=== PATIENT | female | born 1950 | race African-American/Black ===

== ENCOUNTER → 2016-08-10 | Outpatient (CLI) | payer MEDICARE, BC ==
--- NOTE | 2016-08-10 15:45 | BD ---
EXAMINATION TYPE: MG DEXA axial skeleton. DATE OF EXAM: 08/10/2016 10:11 AM COMPARISON: 01.28.2002 CLINICAL HISTORY: E55.9 VITAMIN D DEFICENCY Height: 60 Weight: 149 FRAX RISK QUESTIONS: Alcohol (3 or more units per day): NO Family History (Parent hip fracture): UNKNOWN Glucocorticoids (More than 3mos): YES (Ex: prednisone, prednisolone, methylprednisolone, dexamethasone, and hydrocortisone). History of Fracture in Adulthood: NO Secondary Osteoporosis: NO 1. Type 1 Diabetes: NO 2. Hyperthyroidism: NO 3. Menopause before 45: YES 4. Malnutrition: NO 5. Chronic liver disease: NO Rheumatoid Arthritis: NO Current Tobacco Use: NO RISK FACTORS HISTORY OF: Family History of Osteoporosis: NONE KNOWN Smoke tobacco: NO Drink Alcohol: NO Active: YES Diet low in dairy products/other sources of calcium: NO Postmenopausal woman: 42 YRS OLD Lost more than 2 inches in height since high school: POSSIBLY Adrenal Insufficiency: NO MEDICATIONS: Prednisone or other steroids: STEROID DROPS IN HER EYES How Long: FEW YRS Osteoporosis Medications: IN THE PAST BUT STOPPED 3 YRS AGO Which medication: MYACALCIN How Long: FOR MANY YRS ...BUT STOPPED 3 YRS AGO Additional Medications: BP MEDS, ORAL DIABETIC MEDICATION, CALCIUM WITH VIT D Additional History: CATARACT SURG., DIABETES EXAM MEASUREMENTS: Bone mineral densitometry was performed using the [employer] System. Bone mineral density as measured about the Lumbar spine is: ----- L1-L4(G/cm2): 1.090 T Score Values are as follows: ----- L1: -2.8 ----- L2: -3.1 ----- L3: 0.8 ----- L4: 0.4 ----- L1-L4: -0.8 Bone mineral density has: Increased 6.8% since study of: 01.28.2002 Bone mineral density about the R hip (g/cm2): 1.00 Bone mineral density about the L hip (g/cm2): 0.981 T Score values are as follows: -----R Neck: -0.5 -----L Neck: -0.3 -----R Total: -0.1 -----L Total: -0.2 Bone mineral density has: Decreased -14.8% since study of: 01.28.2002 FRAX %'S: 3.2% CHANCE OF A MAJOR OSTEOPOROTIC FX AND A 0.2% CHANCE FOR A HIP FX.....PROBABILITY OF FX IN 10 YRS TIME IMPRESSION: Osteoporosis (T Score less than -2.5) as noted by T Score values at the There is increased fracture risk and therapy is usually indicated based on age. Re-Screen 1-2 years Bone density has diminished 14.8% within the bilateral hips from comparison: 2001. Bone density wit hin the lumbar spine has improved 6.8% from 2001 NOTE: T-SCORE=SD OF THE YOUNG ADULT MEAN.
--- NOTE | 2016-08-13 09:30 | MM ---
Reason for exam: screening (asymptomatic). Last mammogram was performed 1 year ago. History: Patient is postmenopausal. Family history of premenopausal breast cancer in sister at age 35. Physical Findings: A clinical breast exam by your physician is recommended on an annual basis and results should be correlated with mammographic findings. MG 3D Screening Mammo W/Cad Bilateral CC and MLO view(s) were taken. Prior study comparison: August 10, 2015, bilateral MG 3d screening mammo w/cad. July 19, 2014, bilateral MG screening mammo w CAD. The breast tissue is almost entirely fat. No significant changes when compared with prior studies. ASSESSMENT: Benign, BI-RAD 2 RECOMMENDATION: Routine screening mammogram of both breasts in 1 year.
== END | disposition home or self-care (01) ==
LOC: RADMAMWWP 08:36
PROVIDERS: ATTEND Internal Medicine
DX: Z12.31 Encounter for screening mammogram for malignant neoplasm of breast (principal); M81.0 Age-related osteoporosis without current pathological fracture
CPT/HCPCS: 77080; 77063; G0202

== ENCOUNTER → 2016-10-11 | Outpatient (CLI) | payer MEDICARE, BC ==
[~2016-10-11] MED LIST: DENOSUMAB 60 MG/ML 1 ML SYRINGE SQ ONE
[2016-10-11 15:10] VITALS: BP 137/75; PULSE 61; RESP 16; TEMP 98
== END ==
LOC: PROCWHC3 14:46
PROVIDERS: ATTEND Internal Medicine
DX: M81.0 Age-related osteoporosis without current pathological fracture (principal)
CPT/HCPCS: 96372; J0897

== ENCOUNTER → 2017-07-08 | Outpatient (CLI) | payer MEDICARE, BC ==
[2017-07-08 13:43] VITALS: BP 170/80; PULSE 59; RESP 16; TEMP 97.8
== END | disposition home or self-care (01) ==
LOC: PROCWHC3 13:25
PROVIDERS: ATTEND Internal Medicine
DX: M81.0 Age-related osteoporosis without current pathological fracture (principal)
CPT/HCPCS: 96372; J0897

== ENCOUNTER → 2018-01-09 | Outpatient (CLI) | payer MEDICARE, BC ==
--- NOTE | 2018-01-10 11:48 | MM ---
Reason for exam: screening (asymptomatic). Last mammogram was performed 1 year and 5 months ago. History: Patient is postmenopausal. Family history of premenopausal breast cancer in sister at age 35. Physical Findings: A clinical breast exam by your physician is recommended on an annual basis and results should be correlated with mammographic findings. MG 3D Screening Mammo W/Cad Bilateral CC and MLO view(s) were taken. Prior study comparison: August 10, 2016, bilateral MG 3d screening mammo w/cad. August 10, 2015, bilateral MG 3d screening mammo w/cad. The breast tissue is heterogeneously dense. This may lower the sensitivity of mammography. There is no discrete abnormality. No significant changes when compared with prior studies. ASSESSMENT: Negative, BI-RAD 1 RECOMMENDATION: Routine screening mammogram of both breasts in 1 year.
== END ==
LOC: RADMAMWWP 14:45
PROVIDERS: ATTEND Internal Medicine
DX: Z12.31 Encounter for screening mammogram for malignant neoplasm of breast (principal)
CPT/HCPCS: 77063; 77067

== ENCOUNTER → 2018-02-03 | Outpatient (CLI) | payer MEDICARE, BC ==
[2018-02-03 14:45] VITALS: BP 135/81; PULSE 69; RESP 16; TEMP 98.4
== END | disposition home or self-care (01) ==
LOC: PROCWHC3 14:17
PROVIDERS: ATTEND Internal Medicine
DX: M81.0 Age-related osteoporosis without current pathological fracture (principal)
CPT/HCPCS: 20611; 96372; J0897; J7328

== ENCOUNTER 2018-07-16 06:44 | Day surgery (SDC) | payer MEDICARE, BC ==
[2018-07-10 16:16] VITALS: BMI 27.8
[~2018-07-16 06:44] MED LIST changes: -DENOSUMAB 60 MG/ML 1 ML SYRINGE SQ ONE; +LACTATED RINGERS 1,000 ML IV SCH; +LIDOCAINE 1% 20 ML VIAL (10MG/ML) FOR IV START INTRADERMA PRN; +MOXIFLOXACIN HCL 0.5% DROPS 3 ML BTL OP NR; +ONDANSETRON 4 MG/2 ML VIAL IVP ONE; +TETRACAINE 0.5% OPHTH (PF) DROPS 4 ML BTL OP NR; +TIMOLOL 0.5% OPHTH DROPS 5 ML BTL OP NR; +TOBRA-DEXAMET 0.3-0.1% OPHTH DROPS 2.5 ML BTL OPHTHALMIC NR
[2018-07-16 07:24] VITALS: RESP 18; TEMP 97.8
[2018-07-16] MEDS: PILOCARPINE 2% OPHTH DROPS 15 ML BTL OP NR ×3 (07:25→07:45)
[2018-07-16 07:49] LABS: Glucose,Whole Blood 170 mg/dL (75-99)
[2018-07-16] MEDS ORDERED: fentaNYL (PF) 50 MCG/ML 2 ML AMP ONE (08:02)
[2018-07-16] MEDS ORDERED: MIDAZOLAM 2 MG/2 ML VIAL ONE (08:02)
[2018-07-16] MEDS ORDERED: EPINEPHrine (PF) 0.3 ML in BALANCED SALT IRRIG SOLN COMB2 500 ML IRRIGATION ONE (08:22)
[2018-07-16] MEDS ORDERED: BALANCED SALT IRRIG SOLN COMB2 15 ML IRRIG.SOLN IRRIGATION ONE (08:25)
[2018-07-16] MEDS ORDERED: LIDOCAINE (PF) 10 MG/ML 5ML AMP MISCELLANE ONE (08:25)
[2018-07-16] MEDS ORDERED: TRYPAN BLUE 0.06% SYRINGE 0.5 ML SYRINGE INTRAOCULA ONE (08:27)
[2018-07-16] MEDS ORDERED: CHONDROITIN-SOD HYALURONATE 1 EACH SYRINGE (0.75 ML) INTRAOCULA ONE (08:28)
--- NOTE | 2018-07-16 08:30 | P.OP ---
Date of Procedure: 07/16/18 Preoperative Diagnosis: POAG moderate stage Postoperative Diagnosis: same Procedure(s) Performed: goniotomy right eye Implants: none Anesthesia: MAC Surgeon: Daniel Sanches Estimated Blood Loss (ml): 3 Pathology: none sent Condition: stable Disposition: same day Indications for Procedure: uncontrolled glaucoma with current medications Operative Findings: No complications
[2018-07-16 08:55] VITALS: BP 134/77; PULSE 62
--- NOTE | 2018-07-16 18:59 | OP ---
OPERATIVE REPORT DATE OF SURGERY: July 16, 2018. PROCEDURE PERFORMED: Goniotomy of the right eye. PREOPERATIVE DIAGNOSIS: Primary open angle glaucoma, moderate stage. SURGEON: Dr. Daniel Sanches. ANESTHESIA: Topical. ESTIMATED BLOOD LOSS: Less than 5 mL. SPECIMEN: Taken none. NARRATIVE: After obtaining the appropriate consent, the patient was brought to the operating room. There she was placed on cardiac monitoring, prepped and draped in the usual sterile manner. She was approached from her right temporal side and at the 9 o'clock position, a 2.5 mm keratome was used to create a self-sealing corneal flap incision in a Langerman's fashion. Small amount of 1% Xylocaine MPF 50/50 mix with balanced salt solution was injected into the anterior chamber. This was followed by staining of the anterior chamber with Trypan blue for approximately 1 minute. This was then irrigated away and Viscoat was used to stabilize the anterior chamber. The patient was then rotated approximately 45 degrees to her left and maintaining a gaze in that general direction. Viscoat was placed on the patient's cornea and a gonio prism was used to identify the trabecular meshwork. Using a [place] dual blade goniotomy knife, using a stacie and meet method, a nasal goniotomy of the trabecular meshwork on the right eye was performed without difficulty. A small amount of blood was released as expected. The patient was then rotated back to the normal supine position and using irrigation and aspiration the remainder of the viscoelastic was removed from the anterior chamber. The eye was brought to normal intraocular pressure through the temporal incision with balanced salt solution and the temporal wound was hydrated slightly. She then received 2 drops of 0.5% timolol followed by 2 drops of moxifloxacin, was then lightly patched and shielded in the usual manner. There were no complications from the procedure. She tolerated the procedure well and was returned to outpatient recovery in good condition. MMODL / IJN: [id number] /
== END 2018-07-16 09:19 | disposition home or self-care (01) ==
LOC: OR 06:44
PROVIDERS: ATTEND Ophthalmology
DX: H40.1132 Primary open-angle glaucoma, bilateral, moderate stage (principal); E11.9 Type 2 diabetes mellitus without complications; Z96.1 Presence of intraocular lens; Z88.2 Allergy status to sulfonamides; I10 Essential (primary) hypertension; Z79.84 Long term (current) use of oral hypoglycemic drugs; Z79.899 Other long term (current) drug therapy; Z80.9 Family history of malignant neoplasm, unspecified; Z83.3 Family history of diabetes mellitus; Z87.891 Personal history of nicotine dependence; J45.909 Unspecified asthma, uncomplicated; Z98.42 Cataract extraction status, left eye; Z98.41 Cataract extraction status, right eye
CPT/HCPCS: 65820; J2250; J0171; J2001; J3010

== ENCOUNTER → 2018-08-04 | Outpatient (CLI) | payer MEDICARE, BC ==
[~2018-08-04] MED LIST changes: +DENOSUMAB 60 MG/ML 1 ML SYRINGE SQ NR; -LACTATED RINGERS 1,000 ML IV SCH; -LIDOCAINE 1% 20 ML VIAL (10MG/ML) FOR IV START INTRADERMA PRN; -MOXIFLOXACIN HCL 0.5% DROPS 3 ML BTL OP NR; -ONDANSETRON 4 MG/2 ML VIAL IVP ONE; -TETRACAINE 0.5% OPHTH (PF) DROPS 4 ML BTL OP NR; -TIMOLOL 0.5% OPHTH DROPS 5 ML BTL OP NR; -TOBRA-DEXAMET 0.3-0.1% OPHTH DROPS 2.5 ML BTL OPHTHALMIC NR
[2018-08-04 14:27] VITALS: BP 138/76; PULSE 61; RESP 16; TEMP 98.3
== END ==
LOC: PROCWHC3 14:17
PROVIDERS: ATTEND Internal Medicine
DX: M81.0 Age-related osteoporosis without current pathological fracture (principal)
CPT/HCPCS: 96372

== ENCOUNTER 2018-08-20 07:42 | Day surgery (SDC) | payer MEDICARE, BC ==
[2018-08-15 08:49] VITALS: BMI 28.0
[~2018-08-20 07:42] MED LIST changes: -DENOSUMAB 60 MG/ML 1 ML SYRINGE SQ NR; +LACTATED RINGERS 1,000 ML IV SCH; +LIDOCAINE 1% 20 ML VIAL (10MG/ML) FOR IV START INTRADERMA PRN; +MOXIFLOXACIN HCL 0.5% DROPS 3 ML BTL OP NR; +PILOCARPINE 2% OPHTH DROPS 15 ML BTL OP NR; +TETRACAINE 0.5% OPHTH (PF) DROPS 4 ML BTL OP NR; +TIMOLOL 0.5% OPHTH DROPS 5 ML BTL OP NR
[2018-08-20 08:19] VITALS: RESP 16; TEMP 98.1
[2018-08-20 08:36] LABS: Glucose,Whole Blood 164 mg/dL (75-99)
[2018-08-20] MEDS ORDERED: MIDAZOLAM 2 MG/2 ML VIAL ONE (08:45)
[2018-08-20] MEDS ORDERED: fentaNYL (PF) 50 MCG/ML 2 ML AMP ONE (08:45)
[2018-08-20] MEDS ORDERED: BALANCED SALT IRRIG SOLN COMB2 15 ML IRRIG.SOLN IRRIGATION ONE (09:01)
[2018-08-20] MEDS ORDERED: BALANCED SALT IRRIG SOLN COMB2 500 ML IRRIGATION ONE (09:02)
[2018-08-20] MEDS ORDERED: CHONDROITIN-SOD HYALURONATE 1 EACH SYRINGE (0.75 ML) INTRAOCULA ONE (09:03)
[2018-08-20] MEDS ORDERED: TRYPAN BLUE 0.06% SYRINGE 0.5 ML SYRINGE INTRAOCULA ONE (09:06)
--- NOTE | 2018-08-20 09:13 | P.OP ---
Date of Procedure: 08/20/18 Preoperative Diagnosis: POAG moderate stage Postoperative Diagnosis: same Procedure(s) Performed: goniotomy left eye Implants: none Anesthesia: MAC Surgeon: Daniel Sanches Estimated Blood Loss (ml): 3 Pathology: none sent Condition: stable Disposition: same day Indications for Procedure: poorly controlled glaucoma Operative Findings: No complications
[2018-08-20 09:35] VITALS: BP 150/85; PULSE 55
--- NOTE | 2018-08-20 23:53 | OP ---
OPERATIVE REPORT DATE OF SURGERY: 08/20/2018. PROCEDURE: Goniotomy of the left eye. PREOPERATIVE DIAGNOSIS: Primary open-angle glaucoma, moderate stage. POSTOPERATIVE DIAGNOSIS: Primary open-angle glaucoma, moderate stage. SURGEON: Dr. Daniel Sanches ANESTHESIA: Topical. ESTIMATED BLOOD LOSS: Less than 5 mL. SPECIMEN TAKEN: None. NARRATIVE: After obtaining the appropriate consent, the patient was brought to the operating room. There she was placed under cardiac monitoring, prepped and draped in the usual sterile manner. She was approached from her left temporal side. At the 3 o'clock position a 2.5 mm keratome was used to create a self-sealing corneal flap incision. Through this opening 1% Xylocaine MPF 50/50 mix with balanced salt solution was injected into the anterior chamber. This was followed by instillation of trypan blue, which was left in place for approximately one minute. This was irrigated away and the anterior chamber was filled with Viscoat. A small amount was also placed on the patient's cornea. She was then asked to rotate her head to the right approximately 45 degrees and maintain the gaze in that general direction. A gonioprism was placed on the patient's cornea. Identification of the trabecular meshwork was readily identified with the trypan blue staining and a [employer] dual-blade goniotomy knife was brought into the anterior chamber; and using a cybd-[id number] method, the initial incision was approximately 8 o'clock and then was started from the superior position at approximately 10 or 11. The goniotomy knife was inserted within the trabecular meshwork and was used to remove the TM over the nasal angle of the patient's eye. A small amount of blood was liberated, as would be expected. The goniotomy knife was withdrawn from the anterior chamber and irrigation and aspiration of the viscoelastic as well as the small amount of blood which was liberated into the anterior chamber was removed once the patient was rotated back to the normal supine position. The eye was brought to normal intraocular pressure through the temporal incision, which was then hydrated with balanced salt solution. She then received 2 drops of moxifloxacin as well as 2 drops of 1% pilocarpine. She was lightly patched and shielded in the usual manner. There were no complications from the procedure. She tolerated the procedure well and was returned to Outpatient Recovery in good condition. MMODL / IJN: [id number] /
== END 2018-08-20 09:56 | disposition home or self-care (01) ==
LOC: OR 07:42
PROVIDERS: ATTEND Ophthalmology
DX: H40.1132 Primary open-angle glaucoma, bilateral, moderate stage (principal); E11.9 Type 2 diabetes mellitus without complications; I10 Essential (primary) hypertension; E78.5 Hyperlipidemia, unspecified; J45.909 Unspecified asthma, uncomplicated; Z79.84 Long term (current) use of oral hypoglycemic drugs; Z79.899 Other long term (current) drug therapy; Z98.41 Cataract extraction status, right eye; Z98.42 Cataract extraction status, left eye; Z88.8 Allergy status to other drugs, medicaments and biological substances; Z88.2 Allergy status to sulfonamides
CPT/HCPCS: 65820; J2250; J3010

== ENCOUNTER → 2018-10-14 | Outpatient (CLI) | payer MEDICARE, BC | END | disposition home or self-care (01) | LOC: LABPAT 14:15 | PROVIDERS: ATTEND Orthopaedic Surgery | DX: Z01.812 Encounter for preprocedural laboratory examination (principal) | CPT/HCPCS: 87070 ==

== ENCOUNTER 2018-10-28 15:00 | Day surgery (SDC) | payer MEDICARE, BC ==
--- NOTE | 2018-10-27 11:03 | HP ---
HISTORY AND PHYSICAL CHIEF COMPLAINT: Left knee pain. HISTORY OF PRESENT ILLNESS: The patient is a 68-year-old retired female who presents with progressive left knee pain, worsening over the past several years. She notes pain with weightbearing activities. She notes this severely limits her. She has tried medications in addition to previous injections with only partial temporary relief. PAST MEDICAL HISTORY: Significant for arthritis, type 2 diabetes, osteoporosis, hypertension, hyperlipidemia, glaucoma. PAST SURGICAL HISTORY: Significant for cataract removal and colonoscopy. FAMILY HISTORY: Significant for diabetes. SOCIAL HISTORY: Negative for current tobacco or alcohol use. REVIEW OF SYSTEMS: Sixteen-point review of systems otherwise reviewed and is noncontributory. CURRENT MEDICATIONS: 1. Atorvastatin. 2. Metformin. 3. Prolia. 4. Flonase. ALLERGIES: She notes allergies to SULFA. PHYSICAL EXAMINATION: On examination, the patient is approximately 5 feet 1 inch, 151 pounds of endomorphic habitus. HEENT exam is nonfocal. Neck is supple. She has painless passive motion of her left hip. Straight leg raise is negative. Active motion left knee minus 15 to 115 degrees of flexion. She has a mild effusion. She is tender about the medial joint line. Collaterals are stable, Kristi's negative, Anum's is equivocal. She has genu varum alignment. Her distal neurovascular exam appears intact in the left lower extremity. Weightbearing notch lateral Merchant views left knee obtained in the office show severe medial and patellofemoral compartment narrowing. IMPRESSION: 1. Left knee severe medial and patellofemoral compartment osteoarthrosis. 2. Gmy-[id number]-kkpslylwx diabetes. RECOMMENDATIONS: I talked to the patient at length regarding her condition and treatment options. At this point she is quite limited because of pain related to her osteoarthrosis despite conservative measures. After thorough discussion, she opts to proceed with surgery. We will plan to proceed with left total knee arthroplasty. We will institute DVT prophylaxis postoperatively. The patient underwent preoperative medical evaluation by Dr. Campos. We will institute DVT prophylaxis postoperatively. MMODL / LONGN: [id number] /
[~2018-10-28 15:00] MED LIST changes: +ACETAMINOPHEN TAB 500 MG TAB PO ONE; +DEXAMETHASONE SOD PHOSPHATE 10 MG/ML 1 ML VIAL IV ONE; +HYDROmorphone 0.5 MG/0.5 ML SYRINGE IVP PRN; -LACTATED RINGERS 1,000 ML IV SCH; +MELOXICAM 7.5 MG TAB PO ONE; +MIDAZOLAM 2 MG/2 ML VIAL IV PRN; -MOXIFLOXACIN HCL 0.5% DROPS 3 ML BTL OP NR; +ONDANSETRON 4 MG/2 ML VIAL IVP ONE; -PILOCARPINE 2% OPHTH DROPS 15 ML BTL OP NR; +SCOPOLAMINE 1.5MG/72HR PATCH TRANSDERM ONE; -TETRACAINE 0.5% OPHTH (PF) DROPS 4 ML BTL OP NR; -TIMOLOL 0.5% OPHTH DROPS 5 ML BTL OP NR; +TRANEXAMIC ACID 1,000 MG in SODIUM CHLORIDE 0.9% 100 ML IVPB ONE
[2018-10-28 15:39] LABS: Glucose,Whole Blood 126 mg/dL (75-99)
[2018-10-28] MEDS: LACTATED RINGERS 1,000 ML IV SCH (15:39)
[2018-10-28 15:40] VITALS: RESP 16
[2018-10-28] MEDS ORDERED: MIDAZOLAM (PF) 2 MG/2 ML VIAL IV ONE (15:55)
--- NOTE | 2018-10-28 16:30 | P.ANPRN ---
Procedure Note - Anesthesia - Nerve Block Performed Left Adductor Canal Infusion Time Out Performed: Yes Date of Procedure: 10/28/18 Procedure Start Time: 15:58 Procedure Stop Time: 16:04 Location of Patient Procedure: PreOp Indication: Acute Post-Operative Pain, Requested by physician Sedation Type: Sedate with meaningful contact maintained Preparation: Sterile Prep, Sterile Dressing Position: Supine Catheter: Indwelling Needle Types: Pajunk Needle Gauge: 18 Technique: Ultrasound Injectate: 0.5% Ropivacaine (see comment for volume) (20 ml + Decadron 10 mg)
[2018-10-28] MEDS ORDERED: diphenhydrAMINE 50 MG/ML 1 ML VIAL ONE (17:16)
[2018-10-28] MEDS ORDERED: PROPOFOL 10 MG/ML 20 ML VIAL IV ONE (17:16)
[2018-10-28] MEDS ORDERED: SODIUM CHLORIDE 0.9% 100 ML BAG ONE (17:16)
[2018-10-28] MEDS ORDERED: MIDAZOLAM 2 MG/2 ML VIAL ONE (17:16)
[2018-10-28] MEDS ORDERED: TRANEXAMIC ACID 1,000 MG/10 ML VIAL ONE (17:16)
[2018-10-28] MEDS ORDERED: fentaNYL (PF) 50 MCG/ML 2 ML AMP ONE (17:16)
[2018-10-28] MEDS: ROPIVACAINE 246.25 MG, EPINEPHrine 0.5 MG, KETOROLAC 30 MG, cloNIDine HCL/PF 80 MCG, WA... MISCELLANE ONE ×10 (18:11→18:40)
[2018-10-28] MEDS ORDERED: ceFAZolin 3,000 MG in SODIUM CHLORIDE 0.9% IRRIGATIO 3,000 ML IRRIGATION ONE (18:13)
[2018-10-28] MEDS ORDERED: NALOXONE 0.4 MG/ML 1 ML VIAL IV PRN (18:59)
[2018-10-28] MEDS ORDERED: HYDROmorphone 0.5 MG/0.5 ML SYRINGE IVP PRN (18:59)
[2018-10-28] MEDS ORDERED: traMADol 50 MG TAB PO PRN (18:59)
[2018-10-28] MEDS ORDERED: MAGNESIUM HYDROXIDE 2,400 MG/10 ML CUP PO PRN (18:59)
[2018-10-28] MEDS ORDERED: ONDANSETRON 4 MG/2 ML VIAL IVP PRN (18:59)
[2018-10-28] MEDS ORDERED: ACETAMINOPHEN TAB 325 MG TAB PO PRN (18:59)
[2018-10-28] MEDS ORDERED: HYDROcodone/APAP 5-325MG 1 EACH TAB PO PRN (18:59)
--- NOTE | 2018-10-28 19:25 | P.OP ---
Date of Procedure: 10/28/18 Preoperative Diagnosis: Left knee severe tricompartmental osteoarthrosis Postoperative Diagnosis: Same Procedure(s) Performed: Left total knee arthroplastycementedposterior stabilized Implants: Depuy Attune size 4 cemented femoral component, size 3 cemented tibial component, 10 mm articular surface, 29 mm cemented patellar component. This is a posterior stabilized implant. Anesthesia: regional, local, spinal Surgeon: Sid Hansen Trim Sawyer #1: Isaías Redd Estimated Blood Loss (ml): 50 Pathology: other (Bone fragments) Condition: stable Disposition: PACU Indications for Procedure: The patient's a 60-year-old female who presents to progressive left knee pain secondary to osteoarthrosis despite conservative measures. A discussion of the risks and benefits of operative intervention versus continued conservative measures was made with patient. She opted to proceed with surgery. Operative risks to include infection, neurovascular injury, development of blood clots, possible fracture, possible component loosening, possible instability need for subsequent procedures was discussed. Informed consent was obtained. Operative Findings: As below Description of Procedure: The patient was brought to the operating room, and after induction of spinal anesthesia the left lower extremity was prepped and draped in a normal fashion. The tourniquet was inflated to 270 mm marker. A longitudinal incision extending 3 finger breaths above the superior pole of patella extending to the medial aspect the tibial tubercle was then made. The skin and subcutaneous tissues were divided sharply. Electrocautery was used for hemostasis. A medial parapatellar arthrotomy was performed. The medial soft tissues to include the superficial and deep portions of the medial collateral ligament were elevated subperiosteally. The patella was everted. A portion of the retropatellar fat pad was excised sharply. The anterior cruciate ligament was sacrificed. Blunt retractors were placed. A starting hole was made in the distal femur 1 cm anterior to the posterior cruciate ligament origin. An intramedullary femoral guide was then inserted planning on 5 valgus distal cut with 9 mm distal resection. The cutting block was pinned in place. The distal cut was then made. The posterior referencing sizing guide was utilized. I felt size 4 was most appropriate. 3 of external rotation was built into the system and verified off the trans-epicondylar axis and the posterior condyles. The cutting block was pinned in place. The anterior, posterior, and chamfer cuts then made. Bone fragments were removed. The intercondylar guide was placed and the notch cut was made with a sagittal saw. The bone block was removed in one fragment. The trial component was then placed. There is good anterior to posterior and medial to lateral fit. The distal peg holes were drilled. The trial component was removed. Attention was then paid towards preparing the proximal femur. An extra medullary guide was utilized in line with the tibial shaft and second metatarsal distally. I planned on 2 mm resection from the medial compartment. The cutting block was pinned in place. The proximal tibial cut was then made. The bone was removed in one fragment. The remnants of the medial and lateral menisci were excised at the capsular junction with electrocautery. The tibia sized most appropriately at size 3. The trial femoral and tibial components were placed along with a 10 mm articular surface. I was able to obtain full flexion and extension with internal and external rotation. After several flexion and extension cycles, the tibial rotation was marked with electrocautery line with the medial one third of the tibial tubercle. Attention was then paid towards preparing the patella. A patella reamer was utilized taking stem to 14 mm of bone stock. A good flush cut was made. The patella sized most appropriately 29 mm. The peg holes were drilled. The trial components placed. I had good patellofemoral tracking with no hands technique. The trial components were then removed. The tibia was prepared in the appropriate rotation with appropriate drill and keel punch. The posterior osteophytes were removed with a curved osteotome. The flexion and extension gaps were checked and felt to be symmetric at 10 mm. A trial components were then removed. The posterior soft tissues were injected with ropivacaine. The bony surfaces were prepared with pulsatile lavage and dried. The tibial component was then cemented place was fully seated. Excess cement was removed. The femoral component cemented place and was fully seated. Excess cement was removed. The trial 10 mm articular surface was placed and the knee was put in full extension. The patella component was cemented place. After the cement had sufficiently hardened, the knee was again taken through a range of motion. Again I was able to obtain full flexion and extension with varus and valgus stress. The trial 10 mm articular surface was removed and the final one inserted. This was fully seated. Care was taken to avoid any soft tissue interposition. Pulsatile lavage was again utilized. The medial parapatellar arthrotomy was closed with #2 Ethibond suture. The tourniquet was deflated with approximately 60 minutes total tourniquet time. Final hemostasis was obtained with the cautery. There was minimal bleeding therefore a deep drain was not placed. The subcutaneous tissues were reapproximated with interrupted 2-0 Vicryl sutures. The skin was reapproximated with 3-0 subcuticular strata fix suture. Skin tape and adhesive was applied. A sterile dressing was applied. The patient was awoken from sedation and transferred to recovery room in good condition. Blood loss was estimated at 50 mL. No complications were incurred. Sponge and needle counts were correct at the end of the case. Gato RUIZ assisted during the major components of this case to include exposure, bone resection, implantation, and closure.
[2018-10-28] MEDS ORDERED: ROPIVACAINE 0.2%-NS ON-Q PUMP 1,090 MG, EMPTY PAIN BALL 1 EACH MISCELLANE PRN (19:39)
[2018-10-28 19:41] LABS: Glucose,Whole Blood 146 mg/dL (75-99)
--- NOTE | 2018-10-28 19:49 | XR ---
PROCEDURE: XR knee limited LT - 2V DATE AND TIME: 10/28/2018 7:40 PM CLINICAL INDICATION: PHH; Evaluation for Postop abnormality and alignment TECHNIQUE: Department protocol COMPARISON: None FINDINGS: TKR appears anatomic in its positioning and alignment. Postprocedure changes are noted. No unexpected findings. IMPRESSION: Postop left knee 2 views
[2018-10-28] MEDS ORDERED: LACTATED RINGERS 1,000 ML IV ONE (20:07)
[2018-10-28 20:47] VITALS: BMI 26.9
[2018-10-28] MEDS ORDERED: SENNOSIDES-DOCUSATE SODIUM 1 EACH TAB PO SCH (21:00)
[2018-10-28 21:07] LABS: Glucose,Whole Blood 195 mg/dL (75-99)
[2018-10-28] MEDS ORDERED: IPRATROPIUM-ALBUTEROL 3 ML NEB INHALATION PRN (21:12)
--- NOTE | 2018-10-28 22:19 | P.CONS ---
History of Present Illness - Reason for Consult Consult date: 10/28/18 Medical management of hyperglycemia postoperatively Requesting physician: Sid Hansen - Chief Complaint Hyperglycemia postoperatively - History of Present Illness 68-year-old female with history of diabetes mellitus and hypertension and hyperlipidemia and asthma Patient presented for hospital for scheduled left total knee arthroplasty due to severe advanced degenerative joint disease. Patient tolerated procedure well she is seen postoperative day 0 for management of hyperglycemia as requested per her surgeon. Patient tolerated procedure well with no observed immediate postoperative complications denies any chest pain or trouble breathing. She tolerated diet well. Passed urine. Pain is well tolerated and controlled. Patient is hyperglycemic, she takes metformin at home. Otherwise she denies any fevers or chills denies any nausea vomiting or abdominal pain. Denies any trouble breathing or chest pain Review of Systems Pertinent positives as noted in HPI. All other systems were reviewed and are negative Past Medical History Past Medical History: Asthma, Diabetes Mellitus, Eye Disorder, Hyperlipidemia, Hypertension Additional Past Medical History / Comment(s): osteoporosis, "high pressure in eyes",UTI's History of Any Multi-Drug Resistant Organisms: None Reported Past Surgical History: Orthopedic Surgery Additional Past Surgical History / Comment(s): makayla heel spurs, makayla cataracts, makayla knees arthroscopy Past Anesthesia/Blood Transfusion Reactions: No Reported Reaction Additional Past Anesthesia/Blood Transfusion Reaction / Comm: no hx blood transfusion Past Psychological History: No Psychological Hx Reported Smoking Status: Never smoker Past Alcohol Use History: None Reported Additional Past Alcohol Use History / Comment(s): smoked for a couple years in teens Past Drug Use History: None Reported - Past Family History Mother Family Medical History: No Reported History Additional Family Medical History / Comment(s): "mom's sister had colon CA" Medications and Allergies Home Medications Medication Instructions Recorded Confirmed Type Atorvastatin [Lipitor] 10 mg PO DAILY 10/11/16 10/28/18 History Bisoprolol-Hctz 2.5-6.25 mg [Ziac 1 each PO QAM 10/11/16 10/28/18 History 2.5-6.25] amLODIPine [Norvasc] 2.5 mg PO QAM 10/11/16 10/28/18 History metFORMIN HCL 1,000 mg PO BID 10/11/16 10/28/18 History Calcium Carbonate/Vitamin D3 1 tab PO BID 07/08/17 10/28/18 History [Calcium 600-Vit D3 400 Caplet] Calcitonin Nasal [Fortical 1 spray NASAL DAILY 07/10/18 10/28/18 History (Miacalcin)] Levalbuterol Tartrate [Xopenex Hfa 1 puff INHALATION DIRECTED PRN 07/10/18 10/28/18 History Inhaler] Denosumab [Prolia] 60 mg SQ Q180D 08/15/18 10/28/18 History Brinzolamide/Brimonidine Tart 1 drop RIGHT EYE TID 10/22/18 10/28/18 History [Simbrinza 1%-0.2% Eye Drops] Carboxymethylcellulose Sodium 30 ml BOTH EYES TID PRN 10/22/18 10/28/18 History [Refresh Tears] Difluprednate [Durezol] 1 drop RIGHT EYE BID 10/22/18 10/28/18 History Allergies Allergy/AdvReac Type Severity Reaction Status Date / Time Sulfa (Sulfonamide Allergy Rash/Hives Verified 10/28/18 15:16 Antibiotics) sulfamethoxazole Allergy Rash/Hives Verified 10/28/18 15:16 [From ] trimethoprim [From ] Allergy Rash/Hives Verified 10/28/18 15:16 Physical Exam Vitals: Vital Signs Temp Pulse Pulse Resp BP Pulse Ox 10/28/18 20:06 71 16 134/66 95 10/28/18 19:53 66 16 143/66 95 10/28/18 19:38 65 16 143/65 95 10/28/18 19:23 96.8 F L 78 16 128/76 97 10/28/18 16:09 64 16 127/63 100 10/28/18 15:38 97.4 F L 61 16 150/68 97 Intake and Output 10/28/18 10/28/18 10/28/18 06:59 14:59 22:59 Intake Total 1026 Output Total 50 Balance 976 Intake: IV 1026 Output: Estimated Blood Loss 50 Constitutional: No acute distress, conversant, pleasant Eyes: Anicteric sclerae, moist conjunctiva, no lid-lag Pupils equal round reactive to light ENMT: NC/AT Oropharynx clear, no erythema, exudates Neck: Supple, FROM, no masses, or JVD No carotid bruits No thyromegaly Lungs: Clear to auscultation Clear to percussion Normal respiratory effort, no accessory muscle use Cardiovascular: Heart regular in rate and rhythm, No murmurs, gallops, or rubs No peripheral edema Abdominal: Soft Nontender, no guarding, rebound or rigidity Abdomen moving with respiration Normoactive bowel sounds No hepatomegaly, No splenomegaly No palpable mass No abdominal wall hernia noted Skin: Normal temperature, tone, texture, turgor No induration No subcutaneous nodules No rash, lesions No ulcers Extremities: No digital cyanosis No clubbing Pedal pulses intact and symmetrical Radial pulses intact and symmetrical No calf tenderness Psychiatric: Alert and oriented to person, place and time Appropriate affect fair judgment Neuro Muscles Strength 5/5 in all 4 extremities , limited exam over left lower extremity due to postoperative status, pain pump at bedside Sensation to light touch grossly present throughout Cranial nerves II-XII grossly intact No focal sensory deficits Lymphatics: no palpable cervical or supraclavicular , or inguinal lymph nodes Results Labs: Abnormal Lab Results - Last 24 Hours (Table) 10/28/18 10/28/18 10/28/18 Range/Units 15:33 19:38 21:05 POC Glucose (mg/dL) 126 H 146 H 195 H (75-99) mg/dL Assessment and Plan Assessment: 68-year-old female with history of hypertension and diabetes presented for elective left total knee arthroplasty medicine consult at for postoperative medical management of hypertension and diabetes currently patient has no active complaints tolerated procedure well Plan: Hyperglycemia with history of diabetes mellitus Hold metformin Insulin sliding scale Consistent carbohydrate diet Hypertension currently controlled Resume home blood pressure meds Left total knee arthroplasty postoperative day 0 Management per orthopedics for pain and DVT prophylaxis History of asthma DuoNeb's when necessary Incentive spirometry Follow-up CBC and BMP in the morning Thank you for allowing us to participate in the care of this patient. Do not hesitate to contact us with questions. Someone can be reached from the [facility] hospitalist group at all hours of the day at [phone].
[2018-10-28] MEDS: BRIMONIDINE TARTRATE 0.2% DROPS 5 ML BTL RIGHT EYE SCH (23:44)
[2018-10-28] MEDS: DORZOLAMIDE HCL 2% DROPS 10 ML BTL RIGHT EYE SCH (23:45)
[2018-10-29] MEDS: HYDROcodone/APAP 5-325MG 1 EACH TAB PO PRN ×2 (00:15→08:14)
[2018-10-29] MEDS: LACTATED RINGERS 1,000 ML IV SCH (06:36)
[2018-10-29 06:58] LABS: Glucose,Whole Blood 222 mg/dL (75-99)
[2018-10-29] MEDS: INSULIN ASPART (NovoLOG) 100 UNIT/ML VIAL SQ SCH ×2 (07:42→12:35)
[2018-10-29 07:46] VITALS: BP 122/70; PULSE 69; TEMP 98.2
[2018-10-29] MEDS: DORZOLAMIDE HCL 2% DROPS 10 ML BTL RIGHT EYE SCH (08:14)
[2018-10-29] MEDS: BRIMONIDINE TARTRATE 0.2% DROPS 5 ML BTL RIGHT EYE SCH (08:14)
[2018-10-29 08:20] LABS: Basophils % (A) 0 %; Eosinophils % (A) 0 %; HCT 34.3 % (34.0-46.0); HGB 10.9 gm/dL (11.4-16.0); Lymphocytes # (A) 0.6 k/uL (1.0-4.8); Lymphocytes % (A) 5 %; MCH 29.4 pg (25.0-35.0); MCHC 31.8 g/dL (31.0-37.0); MCV 92.4 fL (80.0-100.0); Mean Platelet Volume 8.3; Monocytes # (A) 0.4 k/uL (0-1.0); Monocytes % (A) 3 %; Neutrophils # (A) 10.7 k/uL (1.3-7.7); Neutrophils % (A) 91 %; Platelet Count 220 k/uL (150-450); RBC 3.71 m/uL (3.80-5.40); WBC 11.8 k/uL (3.8-10.6)
[2018-10-29 08:40] LABS: African American GFR (CKD) >90 (>60 ml/min/1.73 sqM); Anion Gap 9 mmol/L; Blood Urea Nitrogen 16 mg/dL (7-17); Calcium 9.2 mg/dL (8.4-10.2); Carbon Dioxide 25 mmol/L (22-30); Chloride 102 mmol/L (98-107); Glucose 273 mg/dL (74-99); Potassium 4.2 mmol/L (3.5-5.1); Sodium 136 mmol/L (137-145)
[2018-10-29] MEDS ORDERED: BISOPROLOL-HCTZ 2.5-6.25 MG 1 EACH TAB PO SCH (09:00)
[2018-10-29] MEDS ORDERED: ATORVASTATIN 10 MG TAB PO SCH (09:00)
[2018-10-29] MEDS ORDERED: amLODIPine 2.5 MG TAB PO SCH (09:00)
[2018-10-29] MEDS ORDERED: NON-FORMULARY DRUG (Difluprednate [Durezol] 1 DROP) RIGHT EYE SCH (09:00)
[2018-10-29] MEDS ORDERED: RIVAROXABAN 10 MG TAB PO SCH (09:00)
--- NOTE | 2018-10-29 10:40 | P.PN ---
Subjective Progress Note Date: 10/29/18 Principal diagnosis: Status post left total knee arthroplasty Patient evaluated at bedside, she is resting in her hospital bed. Patient has not been up with therapy, her pain is currently controlled. Patient denies any chest pain or shortness of breath. Objective - Vital Signs Vital signs: Vital Signs Temp 98.2 F 10/29/18 07:00 Pulse 69 10/29/18 07:00 Resp 16 10/28/18 23:00 BP 122/70 10/29/18 07:00 Pulse Ox 98 10/29/18 07:00 Intake & Output 10/28/18 10/29/18 10/29/18 18:59 06:59 18:59 Intake Total 801 855 Output Total 50 Balance 801 805 Intake: IV 801 225 Intake, IV Titration 480 Amount Lactated Ringers 1,000 ml 480 @ 40 mls/hr IV .Q24H PURA Rx#:[id number] Oral 150 Output: Estimated Blood Loss 50 Other: Voiding Method Toilet # Voids 2 - Exam Left lower extremity: Incision is clean, dry, and intact. The exofin fusion tape is in good condition. There is minimal soft tissue swelling and ecchymosis surrounding the medial and lateral aspects of the incision. Calf is soft, no tenderness with palpation. Plantar flexion, dorsiflexion, EHL, FHL are intact. Sensory exam to light touch throughout the extremity is intact, dorsal pedis pulses 2+. - Labs CBC & Chem 7: 10/29/18 07:57 10/29/18 07:57 Labs: Abnormal Lab Results - Last 24 Hours (Table) 10/28/18 10/28/18 10/28/18 Range/Units 15:33 19:38 21:05 WBC (3.8-10.6) k/uL RBC (3.80-5.40) m/uL Hgb (11.4-16.0) gm/dL Neutrophils # (1.3-7.7) k/uL Lymphocytes # (1.0-4.8) k/uL Sodium (137-145) mmol/L Glucose (74-99) mg/dL POC Glucose (mg/dL) 126 H 146 H 195 H (75-99) mg/dL 10/29/18 10/29/18 10/29/18 Range/Units 06:57 07:57 07:57 WBC 11.8 H (3.8-10.6) k/uL RBC 3.71 L (3.80-5.40) m/uL Hgb 10.9 L (11.4-16.0) gm/dL Neutrophils # 10.7 H (1.3-7.7) k/uL Lymphocytes # 0.6 L (1.0-4.8) k/uL Sodium 136 L (137-145) mmol/L Glucose 273 H (74-99) mg/dL POC Glucose (mg/dL) 222 H (75-99) mg/dL Assessment and Plan Plan: Assessment: Postoperative day #1 status post left total knee arthroplasty Plan: Pain control, continue oral medication at this time GI and DVT prophylaxis, continue current medication Wound care instructions discussed Home physical therapy and nursing after discharge Medical recommendations Discharge planning: Depending on physical therapy, possible discharge home today Time with Patient: Less than 30
[2018-10-29 11:44] LABS: Glucose,Whole Blood 177 mg/dL (75-99)
--- NOTE | 2018-10-29 11:54 | P.PN ---
Progress Note - Text Progress Note Date: 10/29/18 Patient without complaints. Pain controlled. Left adductor catheter site clean and dry. A/P POD#1 s/p left TKA - doing well
--- NOTE | 2018-10-29 12:50 | P.DS ---
Providers Date of admission: 10/28/2018 Expected date of discharge: 10/29/18 Attending physician: Sid Hansen Consults: 10/28/18 18:59 Consult Physician Routine Consulting Provider: Juan Carlos Campos Consult Reason/Comments: medical management Do you want consulting provider notified?: Yes Primary care physician: Juan Carlos Campos [facility] Course: Date of admission: 10/28/2018 Date of discharge: 10/29/2018 Admission diagnosis: Status post left total knee arthroplasty Discharge diagnosis: Same Attending physician: Dr. Hansen Surgical procedures: Left total knee arthroplasty Brief history: Patient is a 68-year-old female with a history of progressive primary left knee osteoarthritis. At this point patient has failed conservative treatment measures and has opted to proceed with a elective left total knee arthroplasty. Hospital course: Details of patient's surgery can be found in operative report. Patient tolerated the procedure well and was subsequently transported to [facility] floor. Patient's orthopeidc and medical care was provided daily. Patient had daily laboratory tests performed for evaluation of overall blood counts. Patient had daily physical therapy to include strengthening range of motion as well as education with walker ambulation. Patient had daily CPM usage as part of their physical therapy program. Patient was treated with Xarelto for their postoperative DVT prophylaxis during their inpatient stay. Patient was noted to have a relatively uneventful postoperative course. Patient reported satisfactory pain control with oral pain medications by postoperative day 0. Patient showed satisfactory progress with physical therapy. Patient moved steadily through the program and had no difficulty meeting the goals by postoperative day 1. Given patient's otherwise satisfactory course and having met physical therapy goals, plan is to discharge patient home on postoperative day 1. Discharge condition/disposition: Patient will be discharged home in stable condition. Discharge medications: Instructions are given on resumption of patient's normal daily medications per primary care recommendation, in addition patient will be prescribed [place] 5 mg/325 mg, Colace 100 mg, Eliquis 2.5mg. Discharge instructions: 1. Wound care and infection precautions, keep incision dry and covered while showering, no lotions, creams, moisturizers. No soaking, tubs, pools, hottubs. Do not scrub over the incision. 2. Weight-bear [as tolerated] with walker / cane until follow-up. 3. Ice and elevate when necessary. Do not exceed 20 minutes per hour with ice pack. 4. Utilize compression sleeve until seen at first follow up appointment. 5. Visiting nursing care. 6. Home physical therapy [including home CPM]. 7. Pain meds and anticoagulants per prescription. 8. Pain medication has potential to cause constipation. Increase oral fluid and fiber intake. Contact primary care provider if you have not had a bowel movement within 48 hours after discharge 9. No anti-inflammatory medication until discussed at first post operative visit, this including Motrin, Aleve, Mobic, Diclofenac. 10. Follow up in office at 2 weeks postop with Gato Redd PA-C 11. Follow up with your primary care doctor 7-10 days after discharge. 12. Contact [facility] with any questions, . Plan - Discharge Summary Discharge Rx Participant: No New Discharge Prescriptions: New Docusate [Colace] 100 mg PO DAILY #30 capsule Apixaban [Eliquis] 2.5 mg PO BID #60 tab Hydrocodone/Acetaminophen [[place]amb[place] 5-325] 1 - 2 each PO Q6HR PRN #40 tab PRN Reason: Pain No Action metFORMIN HCL 1,000 mg PO BID Atorvastatin [Lipitor] 10 mg PO DAILY amLODIPine [Norvasc] 2.5 mg PO QAM Bisoprolol-Hctz 2.5-6.25 mg [Ziac 2.5-6.25] 1 each PO QAM Calcium Carbonate/Vitamin D3 [Calcium 600-Vit D3 400 Caplet] 1 tab PO BID Calcitonin Nasal [Fortical (Miacalcin)] 1 spray NASAL DAILY Levalbuterol Tartrate [Xopenex Hfa Inhaler] 1 puff INHALATION DIRECTED PRN PRN Reason: Shortness Of Breath Denosumab [Prolia] 60 mg SQ Q180D Difluprednate [Durezol] 1 drop RIGHT EYE BID Brinzolamide/Brimonidine Tart [Simbrinza 1%-0.2% Eye Drops] 1 drop RIGHT EYE TID Carboxymethylcellulose Sodium [Refresh Tears] 30 ml BOTH EYES TID PRN PRN Reason: dry eyes Discharge Medication List Atorvastatin [Lipitor] 10 mg PO DAILY 10/11/16 [History] Bisoprolol-Hctz 2.5-6.25 mg [Ziac 2.5-6.25] 1 each PO QAM 10/11/16 [History] amLODIPine [Norvasc] 2.5 mg PO QAM 10/11/16 [History] metFORMIN HCL 1,000 mg PO BID 10/11/16 [History] Calcium Carbonate/Vitamin D3 [Calcium 600-Vit D3 400 Caplet] 1 tab PO BID 07/08/17 [History] Calcitonin Nasal [Fortical (Miacalcin)] 1 spray NASAL DAILY 07/10/18 [History] Levalbuterol Tartrate [Xopenex Hfa Inhaler] 1 puff INHALATION DIRECTED PRN 07/10/18 [History] Denosumab [Prolia] 60 mg SQ Q180D 08/15/18 [History] Brinzolamide/Brimonidine Tart [Simbrinza 1%-0.2% Eye Drops] 1 drop RIGHT EYE TID 10/22/18 [History] Carboxymethylcellulose Sodium [Refresh Tears] 30 ml BOTH EYES TID PRN 10/22/18 [History] Difluprednate [Durezol] 1 drop RIGHT EYE BID 10/22/18 [History] Apixaban [Eliquis] 2.5 mg PO BID #60 tab 10/29/18 [Rx] Docusate [Colace] 100 mg PO DAILY #30 capsule 10/29/18 [Rx] Hydrocodone/Acetaminophen [[place] 5-325] 1 - 2 each PO Q6HR PRN #40 tab 10/29/18 [Rx] Follow up Appointment(s)/Referral(s): [facility], [NON-STAFF] - Isaías Redd, PAC [PHYSICIAN FURNITURE ASSOCIATE] - 2 Weeks Activity/Diet/Wound Care/Special Instructions: Orthopedic Discharge Instructions: 1. Wound care and infection precautions, keep incision dry and covered while showering, no lotions, creams, moisturizers. No soaking, pools, hot tubs. Do not scrub over incision. 2. Weight-bear as tolerated with walker / cane until follow-up. 3. Ice and elevate when necessary. Do not exceed 20 minutes per hour with ice pack. 4. Utilize compression sleeve until seen at first follow up appointment. 5. Pain meds and anticoagulants per prescription. 6. Pain medication has potential to cause constipation. Increase oral fluid and fiber intake. Contact primary care provider if you have not had a bowel movement within 48 hours after discharge. 7. No anti-inflammatory medication until discussed at first post operative visit, this including Motrin, Aleve, Mobic, Diclofenac. 8. Follow up in office at 2 weeks postop with Gato Redd PA-C 9. Follow up with your primary care doctor 7-10 days after discharge. 10. Contact [facility] with any questions, [phone]. 11. *Please call [facility] [employer] once home to arrange delivery of Continuous Passive Motion (CPM) machine: [phone] Discharge Disposition: HOME WITH HOME HEALTH SERVICES
== END 2018-10-29 14:35 | disposition home health service (06) ==
LOC: OR 15:00 → 4SSUR 20:14 → OR 10-29 14:35
PROVIDERS: ATTEND Orthopaedic Surgery
DX: M17.12 Unilateral primary osteoarthritis, left knee (principal); E11.65 Type 2 diabetes mellitus with hyperglycemia; I10 Essential (primary) hypertension; E78.5 Hyperlipidemia, unspecified; J45.909 Unspecified asthma, uncomplicated; M81.0 Age-related osteoporosis without current pathological fracture; H40.9 Unspecified glaucoma; Z79.84 Long term (current) use of oral hypoglycemic drugs; Z79.899 Other long term (current) drug therapy; J30.81 Allergic rhinitis due to animal (cat) (dog) hair and dander; Z88.1 Allergy status to other antibiotic agents; Z88.2 Allergy status to sulfonamides; Z87.891 Personal history of nicotine dependence; Z98.42 Cataract extraction status, left eye; Z98.41 Cataract extraction status, right eye; Z87.440 Personal history of urinary (tract) infections; Z83.3 Family history of diabetes mellitus
CPT/HCPCS: 27447; 64448; 88300; 73560; 97161; 80048; 85025; C1713; C1776; C1772; J2250 ×2; J0171; J1200; J1100; J0690 ×3; J2405; J3010; J1885; J2795 ×2; J2704; J0735

== ENCOUNTER 2018-12-16 17:17 | Emergency (ER) | payer MEDICARE, BC ==
[2018-12-16 17:24] VITALS: BP 181/87; PULSE 70; RESP 18; TEMP 98
[2018-12-16] MEDS ORDERED: BACITRACIN 500 UNIT/GM OINT 28.4 GM TUBE TOPICAL ONE (18:08)
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
== END 2018-12-16 18:35 | disposition home or self-care (01) ==
LOC: EC 17:17
DX: T25.212A Burn of second degree of left ankle, initial encounter (principal); T31.0 Burns involving less than 10% of body surface; J45.909 Unspecified asthma, uncomplicated; E11.9 Type 2 diabetes mellitus without complications; I10 Essential (primary) hypertension; E78.5 Hyperlipidemia, unspecified; Z79.84 Long term (current) use of oral hypoglycemic drugs; Z79.899 Other long term (current) drug therapy; Z88.1 Allergy status to other antibiotic agents; Z88.2 Allergy status to sulfonamides; X11.8XXA Contact with other hot tap-water, initial encounter
CPT/HCPCS: 99283

== ENCOUNTER → 2019-02-09 | Outpatient (CLI) | payer MEDICARE, BC ==
[~2019-02-09] MED LIST changes: -ACETAMINOPHEN TAB 500 MG TAB PO ONE; +DENOSUMAB 60 MG/ML 1 ML SYRINGE SQ NR; -DEXAMETHASONE SOD PHOSPHATE 10 MG/ML 1 ML VIAL IV ONE; -HYDROmorphone 0.5 MG/0.5 ML SYRINGE IVP PRN; -LIDOCAINE 1% 20 ML VIAL (10MG/ML) FOR IV START INTRADERMA PRN; -MELOXICAM 7.5 MG TAB PO ONE; -MIDAZOLAM 2 MG/2 ML VIAL IV PRN; -ONDANSETRON 4 MG/2 ML VIAL IVP ONE; -SCOPOLAMINE 1.5MG/72HR PATCH TRANSDERM ONE; -TRANEXAMIC ACID 1,000 MG in SODIUM CHLORIDE 0.9% 100 ML IVPB ONE
[2019-02-09 14:54] VITALS: BP 124/77; PULSE 73; RESP 18; TEMP 98.1
== END | disposition home or self-care (01) ==
LOC: PROCWHC3 14:19
PROVIDERS: ATTEND Internal Medicine
DX: M81.0 Age-related osteoporosis without current pathological fracture (principal)
CPT/HCPCS: 96372; J0897

== ENCOUNTER → 2019-04-03 | Outpatient (CLI) | payer MEDICARE, BC ==
--- NOTE | 2019-04-03 14:00 | MM ---
Reason for exam: screening (asymptomatic). Last mammogram was performed 1 year and 3 months ago. History: Patient is postmenopausal. Family history of premenopausal breast cancer in sister at age 35. Took estrogen for 1 month. Physical Findings: A clinical breast exam by your physician is recommended on an annual basis and results should be correlated with mammographic findings. MG Screening Mammo w CAD Bilateral CC and MLO view(s) were taken. Prior study comparison: January 09, 2018, bilateral MG 3d screening mammo w/cad. August 10, 2016, bilateral MG 3d screening mammo w/cad. The breast tissue is heterogeneously dense. This may lower the sensitivity of mammography. Finding: There are indeterminate grouped/clustered calcifications in the upper outer quadrant, middle position. New finding and increase in number of calcifications since January 09, 2018 and August 10, 2016. ASSESSMENT: Incomplete: need additional imaging evaluation, BI-RAD 0 RECOMMENDATION: Special view mammogram of the left breast. [facility] will attempt to contact patient to return for supplemental views.
== END ==
LOC: RADMAMWWP 10:05
PROVIDERS: ATTEND Internal Medicine
DX: Z12.31 Encounter for screening mammogram for malignant neoplasm of breast (principal)
CPT/HCPCS: 77067

== ENCOUNTER → 2019-04-14 | Outpatient (CLI) | payer MEDICARE, BC ==
--- NOTE | 2019-04-15 08:57 | MM ---
Reason for exam: additional evaluation requested from abnormal screening. Last mammogram was performed less than 1 month ago. History: Patient is postmenopausal. Took estrogen for 1 month. Physical Findings: Nurse did not find any significant physical abnormalities on exam. MG Work Up Mamm w CAD LT CC with magnification, ML with magnification, and ML view(s) were taken of the left breast. Prior study comparison: April 03, 2019, bilateral MG screening mammo w CAD. January 09, 2018, bilateral MG 3d screening mammo w/cad. Finding: There is a persistent, suspicious, 4mm heterogeneous, grouped/clustered calcifications in the upper slight outer quadrant, middle posterior position of the left breast, 5-6cm from the nipple, does not layer on true lateral image. Increase in number of calcifications since April 03, 2019 and January 09, 2018. These results were verbally communicated with the patient and result sheet given to the patient on 04/14/19. ASSESSMENT: Suspicious, BI-RAD 4 RECOMMENDATION: Stereotactic core biopsy of the left breast. Called Dr. Campos's office with mammographic findings and has scheduled an appointment for the patient for 05/14/19 at 2:[address] Sheffield. Biopsy scheduled for 05/21/19 at 8:00. PRELIMINARY REPORT CALLED AND FAXED TO DR. SHEFFIELD ON 04/14/19.
== END | disposition home or self-care (01) ==
LOC: RADMAMWWP 13:53
PROVIDERS: ATTEND Internal Medicine
DX: R92.8 Other abnormal and inconclusive findings on diagnostic imaging of breast (principal)
CPT/HCPCS: 77065

== ENCOUNTER → 2019-07-29 | Outpatient (CLI) | payer MEDICARE, BC | END | disposition home or self-care (01) | LOC: LABWHC1 08:37 | PROVIDERS: ATTEND Surgery Plastic and Reconstructive Surgery | DX: U07.1 COVID-19 (principal) | CPT/HCPCS: 87635 ==

== ENCOUNTER → 2019-07-31 | Day surgery (SDC) | payer MEDICARE, BC ==
[2019-07-31 09:43] VITALS: RESP 16
--- NOTE | 2019-07-31 10:35 | P.PCN ---
Date of Procedure: 07/31/19 Preoperative Diagnosis: Microcalcifications of concern in the left breast Postoperative Diagnosis: Same Procedure(s) Performed: Stereotactic core biopsy left breast Surgeon: Ariana Sheffield Estimated Blood Loss (ml): 1 Pathology: other (Breast tissue) Condition: stable Disposition: same day Indications for Procedure: Microcalcifications of concern left breast Operative Findings: Microcalcifications noted in specimen Description of Procedure: The patient is a 69-year-old white female who underwent a mammogram resulting in a left breast mammogram workup on 120 120. She was noted to have a persistent 4 mm heterogenous group clustered calcifications in the upper outer quadrant of the left breast for which stereotactic core biopsy was recommended. Risks and benefits of the procedure as well as the alternatives were discussed with the patient. Risks include but are not limited to bleeding, infection, reaction to the anesthetic. Also the possibility that the lesion would not be adequately sampled with would be considered discordant resulting in further tissue to be obtained. The patient understood and wished to proceed. The patient was taken to the stereotactic core biopsy room. She was positioned on the lo rad table and a car hostler film was obtained of the left breast. CC from above approach was utilized. The area of concern was identified. A stero repair was obtained and the lesion was targeted. The breast was then prepped using Betadine. A 9-gauge vacuum-assisted core rotating biopsy needle was driven to the correct coordinates and fired. 20 mL of 1% lidocaine 10 of rotated epinephrine were used to anesthetize the area. The post fire film revealed that the needle was in the correct location. 12 core biopsies were obtained. Radiograph of the specimen revealed the area of concern had been adequately sampled. A secure stacie clip was placed. The patient tolerated the procedure in stable condition. She will follow with Dr. Cordoba next week. The specimen was sent to pathology.
[2019-07-31 10:43] VITALS: BP 153/82; PULSE 68; TEMP 98.3
--- NOTE | 2019-07-31 10:56 | MM ---
EXAMINATION TYPE: MG stereo VAD BX LT DATE OF EXAM: 07/31/2019 COMPARISON: Prior mammograms April 14, 2019 and older mammograms. CLINICAL HISTORY: Abnormal mammogram. TECHNIQUE: Stereotactic guided core biopsy of left breast with clip placement and follow-up diagnosti c two-view mammogram.. FINDINGS: The procedure of stereotactic guided core biopsy was explained to the patient. Benefits, a lternatives, and risks were discussed. An informed consent was then obtained. [facility] Shortness pathway was cranial approach. I performed the localization, then surgeon, Dr. Adalid Harris performed the remainder of the procedure. A vacuum Sportsy biopsy gun was used to obtain multiple core samples. The patient tolerated the procedure well without any immediate complication. The patient was kept in the radiology department for short stay after the procedure and then discharged home in stable condi tion. Targeted calcifications are identified in specimen mammogram. Post biopsy mammogram shows the clip to appear in satisfactory position relative to the targeted area of concern on the preprocedure images. No residual calcifications identified at this level. IMPRESSION: SUCCESSFUL, UNCOMPLICATED STEREOTACTIC GUIDED CORE BIOPSY OF AREA OF CONCERN IN THE LEFT BREAST, FULL PATHOLOGY RESULTS TO FOLLOW. Intermediate index of suspicion noted at time of procedure.
== END ==
LOC: RADMAMWWP 09:12
PROVIDERS: ATTEND Surgery
DX: N60.12 Diffuse cystic mastopathy of left breast (principal); Z88.2 Allergy status to sulfonamides
CPT/HCPCS: 88305; 19081; A4648; J2001

== ENCOUNTER → 2019-08-06 | Outpatient (CLI) | payer MEDICARE, BC ==
[2019-08-06 12:43] VITALS: BP 143/82; PULSE 60; RESP 16; TEMP 98.7
--- NOTE | 2019-08-06 13:06 | P.PN ---
Subjective Progress Note Date: 08/06/19 Principal diagnosis: Fibroadenomatoid change left breast Lilia is a 69-year-old female who is status post left breast stereotactic core biopsy on 5819. Pathology revealed fibrocystic changes with fibroadenomatoid hyperplasia and focal sclerosing adenosis. The area of concern was adequately sampled. The patient does not have any complaints related to the procedure. Does not complain of any hematoma or bruising. Objective - Vital Signs Vital signs: Vital Signs Temp 98.7 F 08/06/19 12:41 Pulse 60 08/06/19 12:41 Resp 16 08/06/19 12:41 BP 143/82 08/06/19 12:41 Pulse Ox 98 08/06/19 12:41 Intake & Output 08/05/19 08/06/19 08/06/19 18:59 06:59 18:59 Weight 65.771 kg - Constitutional General appearance: Present: average body habitus - EENT Eyes: Present: EOMI ENT: Present: hearing grossly normal - Respiratory Respiratory: bilateral: CTA - Cardiovascular Rhythm: regular Heart sounds: normal: S1, S2 - Integumentary Integumentary Comment(s): well healed biopsy site left breast, no evidence of infection or ecchymosis Assessment and Plan Assessment: Impression: 1. Patient status post left breast core sterotactic biopsy on /pathology benign Plan: 1. Left breast mammogram in 6 months with physician exam at that time 2. Patient to call sooner if any questions of concern CC: Dr. Campos encounter 10 minutes, > 50% of time in planning and counselling Time with Patient: Less than 30
== END | disposition home or self-care (01) ==
LOC: WWCWWP 12:13
PROVIDERS: ATTEND Surgery
DX: Z53.9 Procedure and treatment not carried out, unspecified reason (principal)

== ENCOUNTER → 2019-10-14 | Outpatient (CLI) | payer MEDICARE, BC ==
[2019-10-14 12:59] VITALS: BP 135/79; PULSE 61; RESP 16; TEMP 97.8
== END | disposition home or self-care (01) ==
LOC: PROCWHC3 12:30
PROVIDERS: ATTEND Internal Medicine
DX: M81.0 Age-related osteoporosis without current pathological fracture (principal)
CPT/HCPCS: 96372; J0897

== ENCOUNTER → 2020-02-02 | Outpatient (CLI) | payer MEDICARE, BC ==
--- NOTE | 2020-02-02 10:01 | MM ---
Reason for exam: follow-up at short interval from prior study. Last mammogram was performed 10 months ago. History: Patient is postmenopausal. Benign MG stereo VAD BX LT of the left breast, July 31, 2019. Took estrogen for 1 month. Physical Findings: Nurse did not find any significant physical abnormalities on exam. MG 3D Diag Mammo W/Cad LT CC and MLO view(s) were taken of the left breast. Prior study comparison: April 14, 2019, left breast MG work up mamm w CAD LT. April 03, 2019, bilateral MG screening mammo w CAD. The breast tissue is heterogeneously dense. This may lower the sensitivity of mammography. Previous mammotome biopsy in the left breast. There is no discrete abnormality. No significant new findings when compared with previous films. These results were verbally communicated with the patient and result sheet given to the patient on 02/02/20. ASSESSMENT: Benign, BI-RAD 2 RECOMMENDATION: Return to routine screening mammogram schedule for both breasts. Back on schedule for March 2020.
== END | disposition home or self-care (01) ==
LOC: RADMAMWWP 09:22
PROVIDERS: ATTEND Surgery
DX: R92.8 Other abnormal and inconclusive findings on diagnostic imaging of breast (principal)
CPT/HCPCS: 77065; G0279; 77061

== ENCOUNTER → 2020-02-04 | Outpatient (CLI) | payer MEDICARE, BC ==
[2020-02-04 10:53] VITALS: BP 162/87; PULSE 53; RESP 18; TEMP 97.8
--- NOTE | 2020-02-04 11:35 | P.PN ---
Subjective Progress Note Date: 02/04/20 Principal diagnosis: surveillance of left breast Patient is a 69-year-old female who on a routine mammogram performed on was noted to have an area of concern in the left breast. She was seen in consultation for Dr. Leos regarding this. Additional views of the left breast were obtained which revealed a persistent suspicious 4 mm heterogeneous group/cluster calcification in the upper outer quadrant area of the left breast. The patient was recommended to undergo stereotactic core biopsy. This was done on 07-31-19 and was benign /concordant. The patient does not feel any masses lumps or nodules in her breasts. She does not complain of any nipple discharge of concern. She is not reporting any recent trauma or infection in the breast. She had a repeat left breast mammogram on 02-02-20 which was benign BIRAD 2. She is not complaining of any pain in the breast. Family History: maternal aunt: colon cancer maternal aunt: throat cancer Hormonal History: menarche; 15 breast fed: no, first born at 21 menopasue: 50 BCP: none hormones: 1 year Surgical History: D&C knee replacement right eye glaucoma Medical history: diabetic Social History: smoke: none alcohol: none drugs: none - Constitutional Comment: hot flashes Constitutional: Reports sweats - EENT Comment: glaucoma, wears glasses Eyes: denies blurred vision, denies pain Ears: deny: decreased hearing, tinnitus Ears, nose, mouth and throat: Denies headache, Denies sore throat - Breasts Breasts: bilateral: as per HPI - Cardiovascular Cardiovascular: Denies chest pain, Denies shortness of breath - Respiratory Comment: asthma - Gastrointestinal Gastrointestinal: Denies abdominal pain, Denies diarrhea, Denies nausea, Denies vomiting - Genitourinary (Female) Comment: UTI Genitourinary: Denies dysuria, Denies hematuria - Menstruation Menstruation: Reports postmenopausal - Musculoskeletal Comment: arthritis - Neurological Neurological: Denies numbness, Denies weakness - Endocrine Endocrine: Denies fatigue, Denies weight change - Hematologic/Lymphatic Comment: none - Allergic/Immunologic Allergic/Immunologic: Reports seasonal allergies Objective - Vital Signs Vital signs: Vital Signs Temp 97.8 F 02/04/20 10:50 Pulse 53 L 02/04/20 10:50 Resp 18 02/04/20 10:50 BP 162/87 02/04/20 10:50 Pulse Ox 99 02/04/20 10:50 Intake & Output 02/03/20 02/04/20 02/04/20 18:59 06:59 18:59 Weight 72.575 kg - Exam BMI 29.7 - Constitutional General appearance: Present: average body habitus - EENT Eyes: Present: EOMI ENT: Present: hearing grossly normal - Neck Neck: Present: normal ROM - Respiratory Respiratory: bilateral: CTA - Cardiovascular Rhythm: regular Heart sounds: normal: S1, S2 - Gastrointestinal General gastrointestinal: Present: normal bowel sounds, soft - Integumentary Integumentary: Present: normal turgor - Musculoskeletal Musculoskeletal: Present: gait normal - Psychiatric Psychiatric: Present: A&O x's 3, appropriate affect - Additional findings Additional findings: Breast Exam: BRA: 36B inspection: bilateral grade 2 ptosis Palpation: Right breast: Multi-positional exam no dominant masses or nodules of concern Right axilla: No adenopathy of concern Left breast: Multi-positional exam well-healed scar no dominant masses or nodules of concern fibrocystic changes Left axilla: No adenopathy of concern Assessment and Plan Assessment: Impression: 1. Recent repeat left breast mammogram surveillance after her left breast stereotactic core biopsy benign BIRADS 2 2. Diabetes 3. Fibrocystic breast changes Plan: 1. Right breast mammogram in March 2020, follow-up for results 2. Bilateral mammogram in March 2021 if the right breast mammogram in March is benign 3. Patient to call if she notes any changes of concern CC: Andres encounter 15 minutes, > 50% of time in planning and counselling
== END | disposition home or self-care (01) ==
LOC: WWCWWP 10:23
PROVIDERS: ATTEND Surgery
DX: Z53.9 Procedure and treatment not carried out, unspecified reason (principal)

== ENCOUNTER → 2020-05-27 | Outpatient (CLI) | payer MEDICARE | END | disposition home or self-care (01) | LOC: LABPAT 15:18 | PROVIDERS: ATTEND Orthopaedic Surgery | DX: Z01.812 Encounter for preprocedural laboratory examination (principal) | CPT/HCPCS: 87070 ==

== ENCOUNTER → 2020-06-03 | Outpatient (CLI) | payer MEDICARE ==
[2020-06-03 10:54] VITALS: BP 162/90; PULSE 62; RESP 16; TEMP 98.3
== END | disposition home or self-care (01) ==
LOC: PROCWHC3 10:21
PROVIDERS: ATTEND Internal Medicine
DX: M81.0 Age-related osteoporosis without current pathological fracture (principal)
CPT/HCPCS: 96372; J0897

== ENCOUNTER → 2020-06-22 | Outpatient (CLI) | payer MEDICARE ==
--- NOTE | 2020-06-23 08:55 | MM ---
Reason for exam: additional evaluation requested from prior study. Last mammogram was performed 5 months ago. History: Patient is postmenopausal. Benign MG stereo VAD BX LT of the left breast, July 31, 2019. Took estrogen for 1 month. Physical Findings: Nurse did not find any significant physical abnormalities on exam. MG 3D Diag Mammo W/Cad MIGUEL Bilateral CC and MLO view(s) were taken. Prior study comparison: February 02, 2020, left breast MG 3d diag mammo w/cad LT. April 14, 2019, left breast MG work up mamm w CAD LT. The breast tissue is heterogeneously dense. This may lower the sensitivity of mammography. Previous mammotome biopsy in the left breast. No significant new findings when compared with previous films. These results were verbally communicated with the patient and result sheet given to the patient on 06/22/20. ASSESSMENT: Benign, BI-RAD 2 RECOMMENDATION: Routine screening mammogram of both breasts in 1 year.
== END | disposition home or self-care (01) ==
LOC: RADMAMWWP 14:07
PROVIDERS: ATTEND Surgery
DX: R92.8 Other abnormal and inconclusive findings on diagnostic imaging of breast (principal); Z78.0 Asymptomatic menopausal state
CPT/HCPCS: 77066; G0279; 77062

== ENCOUNTER → 2020-07-11 | Outpatient (CLI) | payer MEDICARE ==
[2020-07-12 00:17] LABS: Anion Gap 11.4 mmol/L (4.00-12.00); Carbon Dioxide 25.6 mmol/L (21.6-31.8); Potassium 4.4 mmol/L (3.5-5.5)
== END | disposition home or self-care (01) ==
LOC: LABWHC1 13:14
PROVIDERS: ATTEND Internal Medicine
DX: Z01.818 Encounter for other preprocedural examination (principal); D68.9 Coagulation defect, unspecified
CPT/HCPCS: 36415; 80051; 85730

== ENCOUNTER → 2020-07-14 | Outpatient (CLI) | payer MEDICARE ==
[2020-07-14 10:18] VITALS: BP 161/71; PULSE 76; RESP 18; TEMP 98.2
--- NOTE | 2020-07-14 10:36 | P.PN ---
Subjective Progress Note Date: 07/14/20 Principal diagnosis: surveillance of breast surveillance of breast Patient is a 70-year-old female who on a routine mammogram performed on was noted to have an area of concern in the left breast. She was seen in consultation for Dr. Leos regarding this. Additional views of the left breast were obtained which revealed a persistent suspicious 4 mm heterogeneous group/cluster calcification in the upper outer quadrant area of the left breast. The patient was recommended to undergo stereotactic core biopsy. This was done on 07-31-19 and was benign /concordant. The patient does not feel any masses lumps or nodules in her breasts. She does not complain of any nipple discharge of concern. She is not reporting any recent trauma or infection in the breast. She had a repeat left breast mammogram on 02-02-20 which was benign BIRAD 2. She is not complaining of any pain in the breast.nShe had a recent bilateral mammogram on 06-22-20 which was benign BIRAD 2. Family History: maternal aunt: colon cancer maternal aunt: throat cancer Hormonal History: menarche; 15 breast fed: no, first born at 21 menopasue: 50 BCP: none hormones: 1 year Surgical History: D&C knee replacement right eye glaucoma Medical history: diabetic getting ready for knee replacement related to arthritis in July 2020 Social History: smoke: none alcohol: none drugs: none - Constitutional Comment: hot flashes Constitutional: Reports sweats - EENT Comment: glaucoma, wears glasses Eyes: denies blurred vision, denies pain Ears: deny: decreased hearing, tinnitus Ears, nose, mouth and throat: Denies headache, Denies sore throat - Breasts Breasts: bilateral: as per HPI - Cardiovascular Cardiovascular: Denies chest pain, Denies shortness of breath - Respiratory Comment: asthma - Gastrointestinal Gastrointestinal: Denies abdominal pain, Denies diarrhea, Denies nausea, Denies vomiting - Genitourinary (Female) Comment: UTI Genitourinary: Denies dysuria, Denies hematuria - Menstruation Menstruation: Reports postmenopausal - Musculoskeletal Comment: arthritis - Neurological Neurological: Denies numbness, Denies weakness - Endocrine Endocrine: Denies fatigue, Denies weight change - Hematologic/Lymphatic Comment: none - Allergic/Immunologic Allergic/Immunologic: Reports seasonal allergies Objective - Vital Signs Vital signs: Vital Signs Temp 98.2 F 07/14/20 10:16 Pulse 76 07/14/20 10:16 Resp 18 07/14/20 10:16 BP 161/71 07/14/20 10:16 Pulse Ox 99 07/14/20 10:16 Intake & Output 07/13/20 07/14/20 07/14/20 18:59 06:59 18:59 Weight 72.121 kg - Exam BMI 29.6 - Constitutional General appearance: Present: average body habitus - EENT Eyes: Present: EOMI ENT: Present: hearing grossly normal - Neck Neck: Present: normal ROM - Respiratory Respiratory: bilateral: CTA - Cardiovascular Rhythm: regular Heart sounds: normal: S1, S2 - Integumentary Integumentary: Present: normal turgor - Psychiatric Psychiatric: Present: A&O x's 3, appropriate affect, intact judgment & insight - Additional findings Additional findings: Breast exam: BRA: 36B inspection:grade 2 ptosis bilateral palpation: Right breast: Multiple positional exam fibrocystic changes no dominant masses or nodules of concern Right axilla: No adenopathy of concern Left breast: Well-healed scar from prior burn, no dominant masses or nodules of concern, fibrocystic changes Left axilla: No adenopathy of concern Assessment and Plan Assessment: Impression: 1. Stable bilateral mammogram done on 2. Fibrocystic breast changes 3. Arthritis patient getting ready for a knee replacement 4. Diabetes Plan: 1. Repeat bilateral mammogram in 1 year 2. Patient to call sooner if any questions or concerns Cc: Dr. Campos
== END | disposition home or self-care (01) ==
LOC: WWCWWP 10:07
PROVIDERS: ATTEND Surgery
DX: N60.11 Diffuse cystic mastopathy of right breast (principal); N60.12 Diffuse cystic mastopathy of left breast; E11.9 Type 2 diabetes mellitus without complications; M17.9 Osteoarthritis of knee, unspecified; Z87.891 Personal history of nicotine dependence

== ENCOUNTER 2020-07-26 06:02 | Day surgery (SDC) | payer MEDICARE ==
[2020-07-22 11:48] VITALS: BMI 29.5
--- NOTE | 2020-07-25 09:10 | HP ---
HISTORY AND PHYSICAL CHIEF COMPLAINT: Right knee pain. HISTORY OF PRESENT ILLNESS: The patient is a 70-year-old retired female who presents with progressive right knee pain secondary to osteoarthrosis for the past several years, worsening recently. She is having pain at night in addition to pain with weightbearing activities that limits her significantly. She has been limping. She has tried medications in addition to injections and exercise programs without much relief. Therapy actually exacerbated her symptoms. PAST MEDICAL HISTORY: Significant for type 2 diabetes and arthritis. PAST SURGICAL HISTORY: Significant for left total knee arthroplasty; in addition to right knee arthroscopy. CURRENT MEDICATIONS: 1. Metformin. 2. Calcitonin. 3. Ziac. ALLERGIES: She notes allergies to SULFA. FAMILY HISTORY: Significant for diabetes. SOCIAL HISTORY: Negative for current tobacco or alcohol use. REVIEW OF SYSTEMS: Sixteen-point review of systems otherwise reviewed and is noncontributory. PHYSICAL EXAMINATION: On examination, the patient is approximately 5 feet 1 inch, 151 pounds of endomorphic habitus. HEENT exam is nonfocal. Neck is supple. She has painless passive motion of the right hip. Straight leg raise is negative. Active motion right knee -12 to 110 degrees of flexion. She has a moderate effusion. She is tender about the medial joint line. Collaterals are stable, Kristi is negative, Anum's is equivocal. She has genu varum alignment. Her distal neurovascular appears intact in the right lower extremity. Weightbearing notch, lateral and Merchant views of the right knee obtained in the office show severe medial and patellofemoral compartment are narrowing with bone-on- bone changes. Subchondral sclerosis and spurring are noted. IMPRESSION: 1. Right knee severe medial and patellofemoral compartment osteoarthrosis. 2. [id number] diabetes. RECOMMENDATIONS: I talked to the patient at length regarding her condition and treatment options. At this point, she is quite symptomatic and limited despite extensive previous conservative measures. She opts to proceed with surgery. We will plan to proceed with right total knee arthroplasty. We will institute DVT prophylaxis postoperatively. MMODL / IJN: [id number] /
[~2020-07-26 06:02] MED LIST changes: +ACETAMINOPHEN TAB 500 MG TAB PO PRN; -DENOSUMAB 60 MG/ML 1 ML SYRINGE SQ NR; +DEXAMETHASONE SOD PHOSPHATE 4 MG/ML 1 ML VIAL IV ONE; +LACTATED RINGERS 1,000 ML IV SCH; +MELOXICAM 7.5 MG TAB PO PRN; +MIDAZOLAM 2 MG/2 ML VIAL IV PRN; +ONDANSETRON 4 MG/2 ML VIAL IVP ONE; +ROPIVACAINE/EPI/CLONIDINE/KET 50 ML SYRINGE MISCELLANE PRN; +TRANEXAMIC ACID 1,000 MG in SODIUM CHLORIDE 0.9% 100 ML IVPB PRN
[2020-07-26 07:07] LABS: Glucose,Whole Blood 150 mg/dL (75-99)
[2020-07-26] MEDS ORDERED: MIDAZOLAM 2 MG/2 ML VIAL IVP ONE (07:15)
[2020-07-26] MEDS ORDERED: PROPOFOL 10 MG/ML 20 ML VIAL IV ONE (07:36)
[2020-07-26] MEDS ORDERED: LIDOCAINE 1% INJ 10MG/ML (20 ML MDV) ONE (07:36)
[2020-07-26] MEDS ORDERED: SUCCINYLCHOLINE CHLORIDE 100 MG/5 ML SYR IV ONE (07:36)
[2020-07-26] MEDS ORDERED: TRANEXAMIC ACID 1,000 MG/10 ML VIAL ONE (07:36)
[2020-07-26] MEDS ORDERED: MIDAZOLAM 2 MG/2 ML VIAL ONE (07:36)
[2020-07-26] MEDS ORDERED: HYDROmorphone (PF) 1 MG/ML ONE (07:36)
[2020-07-26] MEDS ORDERED: ROPIVACAINE 5 MG/ML 30 ML VIAL ONE (07:36)
[2020-07-26] MEDS ORDERED: fentaNYL (PF) 50 MCG/ML 2 ML AMP ONE (07:36)
[2020-07-26] MEDS ORDERED: SODIUM CHLORIDE 0.9% 100 ML BAG ONE (07:36)
[2020-07-26] MEDS ORDERED: ACETAMINOPHEN TAB 325 MG TAB PO PRN (09:16)
[2020-07-26] MEDS ORDERED: ONDANSETRON 4 MG/2 ML VIAL IVP PRN (09:16)
[2020-07-26] MEDS ORDERED: MAGNESIUM HYDROXIDE 2,400 MG/10 ML CUP PO PRN (09:16)
[2020-07-26] MEDS ORDERED: HYDROmorphone 0.5 MG/0.5 ML SYRINGE IVP PRN (09:16)
[2020-07-26] MEDS ORDERED: HYDROcodone/APAP 5-325MG 1 EACH TAB PO PRN ×2 (09:16)
[2020-07-26] MEDS ORDERED: NALOXONE 0.4 MG/ML 1 ML VIAL IV PRN (09:16)
[2020-07-26] MEDS ORDERED: LACTATED RINGERS 1,000 ML IV ONE (09:28)
[2020-07-26 09:40] VITALS: TEMP 97.5
--- NOTE | 2020-07-26 09:54 | P.OP ---
Date of Procedure: 07/26/20 Preoperative Diagnosis: Right knee severe tricompartmental osteoarthrosis Postoperative Diagnosis: Same Procedure(s) Performed: Right total knee arthroplastycementedposterior stabilized Implants: Depuy Attune is 4 narrow cemented femoral component, size 3 cemented tibial component, 10 mm articular surface, 29 mm cemented patellar component. This is a posterior stabilized implant. Anesthesia: [facility] Surgeon: Sid Hansen Caustic Room Operator #1: Isaías Redd Estimated Blood Loss (ml): 50 Pathology: other (Bone fragments) Condition: stable Disposition: PACU Indications for Procedure: The patient is a 70-year-old female who presents with progressive right knee pain secondary to osteoarthrosis despite conservative measures. A discussion of the risks and benefits of operative intervention versus continued conservative measures was made with patient. She opted to proceed with surgery. Operative risks to include infection, neurovascular injury, development of blood clots, possible fracture, possible component loosening/failure need for subsequent procedures was discussed. Informed consent was obtained. Operative Findings: As below Description of Procedure: The patient was brought to the operating room, and after induction of spinal anesthesia the right lower extremity was prepped and draped in a normal fashion. The tourniquet was inflated to 270 mm marker. A longitudinal incision extending 3 finger breaths above the superior pole of patella extending to the medial aspect the tibial tubercle was then made. The skin and subcutaneous tissues were divided sharply. Electrocautery was used for hemostasis. A medial parapatellar arthrotomy was performed. The medial soft tissues to include the superficial and deep portions of the medial collateral ligament were elevated subperiosteally. The patella was everted. A portion of the retropatellar fat pad was excised sharply. The anterior cruciate ligament was sacrificed. Blunt retractors were placed. A starting hole was made in the distal femur 1 cm anterior to the posterior cruciate ligament origin. An intramedullary femoral guide was then inserted planning on 5 valgus distal cut with 9 mm distal resection. The cutting block was pinned in place. The distal cut was then made. The posterior referencing sizing guide was utilized. I felt size 4 narrow was most appropriate. 3 of external rotation was built into the system and verified off the trans-epicondylar axis and the posterior condyles. The cutting block was pinned in place. The anterior, posterior, and chamfer cuts then made. Bone fragments were removed. The intercondylar guide was placed and the notch cut was made with a sagittal saw. The bone block was removed in one fragment. The trial component was then placed. There is good anterior to posterior and medial to lateral fit. The distal peg holes were drilled. The trial component was removed. Attention was then paid towards preparing the proximal femur. An extra medullary guide was utilized in line with the tibial shaft and second metatarsal distally. I planned on 2 mm resection from the medial compartment. The cutting block was pinned in place. The proximal tibial cut was then made. The bone was removed in one fragment. The remnants of the medial and lateral menisci were excised at the capsular junction with electrocautery. The tibia sized most appropriately at size 3. The trial femoral and tibial components were placed along with a 10 mm articular surface. I was able to obtain full flexion and extension with internal and external rotation. After several flexion and extension cycles, the tibial rotation was marked with electrocautery line with the medial one third of the tibial tubercle. Attention was then paid towards preparing the patella. A patella reamer was utilized taking stem to 14 mm of bone stock. A good flush cut was made. The patella sized most appropriately 29 mm. The peg holes were drilled. The trial components placed. I had good patellofemoral tracking with no hands technique. The trial components were then removed. The tibia was prepared in the appropriate rotation with appropriate drill and keel punch. The posterior osteophytes were removed with a curved osteotome. The flexion and extension gaps were checked and felt to be symmetric at 10 mm. A trial components were then removed. The bony surfaces were prepared with pulsatile lavage and dried. The tibial component was then cemented place was fully seated. Excess cement was removed. The femoral component cemented place and was fully seated. Excess cement was removed. The trial 10 mm articular surface was placed and the knee was put in full extension. The patella component was cemented place. After the cement had sufficiently hardened, the knee was again taken through a range of motion. Again I was able to obtain full flexion and extension with varus and valgus stress. The trial 10 mm articular surface was removed and the final one inserted. This was fully seated. Care was taken to avoid any soft tissue interposition. Pulsatile lavage was again utilized. The medial parapatellar arthrotomy was closed with #2 Ethibond suture. The tourniquet was deflated with approximately 60 minutes total tourniquet time. Final hemostasis was obtained with the cautery. There was minimal bleeding therefore a deep drain was not placed. The subcutaneous tissues were reapproximated with interrupted 2-0 Vicryl sutures. The skin was reapproximated with 3-0 subcuticular strata fix suture. Skin tape and adhesive was applied. A sterile dressing was applied. The patient was awoken from sedation and transferred to recovery room in good condition. Blood loss was estimated at 50 mL. No complications were incurred. Sponge and needle counts were correct at the end of the case. Gato RUIZ assisted during the major components of this case to include exposure, bone resection, implantation, and closure.
--- NOTE | 2020-07-26 10:02 | XR ---
EXAMINATION TYPE: XR knee limited RT DATE OF EXAM: 07/26/2020 CLINICAL HISTORY: Postoperative evaluation Two views of the right knee are submitted. Identified are changes of total knee arthroplasty with femoral and tibial components appearing well seated. Postsurgical soft tissue changes are noted. Alignment is anatomic.
[2020-07-26] MEDS: HYDROmorphone 0.5 MG/0.5 ML SYRINGE IVP PRN ×2 (10:12→10:19)
[2020-07-26] MEDS ORDERED: KETOROLAC 15 MG/ML 1 ML VIAL IVP ONE (10:13)
[2020-07-26] MEDS ORDERED: ROPIVACAINE 0.2%-NS ON-Q PUMP 1,090 MG, EMPTY PAIN BALL 1 EACH MISCELLANE PRN ×2 (10:14→11:24)
--- NOTE | 2020-07-26 11:26 | P.ANPRN ---
Procedure Note - Anesthesia - Nerve Block Performed Right Adductor Canal Time Out Performed: Yes (07:14) Date of Procedure: 07/26/20 Procedure Start Time: : Procedure Stop Time: : Location of Patient: PreOp Indication: Acute Post-Operative Pain, Requested by Surgeon (Dr Hansen) Sedation Type: Sedate with meaningful contact maintained Preparation: Sterile Prep, Sterile Dressing Position: Supine Catheter: Indwelling Needle Types: Pajunk Needle Gauge: 21 Ultrasound used to visualize needle placement: Yes Ultrasound used to observe medication spread: Yes Injectate: 0.5% Ropivacaine (see comment for volume) (15cc) Blood Aspirated: No Pain Paresthesia on Injection Noted: No Resistance on Injection: Normal Image Stored and Saved: Yes Events: Uneventful and Well Tolerated
--- NOTE | 2020-07-26 11:27 | P.ANPRN ---
Procedure Note - Anesthesia - Nerve Block Performed Right iPack Time Out Performed: Yes (:) Date of Procedure: 07/26/20 Procedure Start Time: Procedure Stop Time: : Location of Patient: PreOp Indication: Acute Post-Operative Pain, Requested by Surgeon (Dr Hansen) Sedation Type: Sedate with meaningful contact maintained Preparation: Sterile Prep Position: Supine Catheter: None Needle Types: Pajunk Needle Gauge: 21 Ultrasound used to visualize needle placement: Yes Ultrasound used to observe medication spread: Yes Injectate: 0.5% Ropivacaine (see comment for volume) (15cc) Blood Aspirated: No Pain Paresthesia on Injection Noted: No Resistance on Injection: Normal Image Stored and Saved: Yes Events: Uneventful and Well Tolerated
[2020-07-26] MEDS ORDERED: METOCLOPRAMIDE 5 MG/ML 2 ML VIAL ONE (12:04)
[2020-07-26] MEDS ORDERED: METOCLOPRAMIDE 5 MG/ML 2 ML VIAL IVP ONE (12:05)
[2020-07-26 13:13] VITALS: BP 147/67; PULSE 81; RESP 20
[2020-07-26] MEDS ORDERED: SENNOSIDES-DOCUSATE SODIUM 1 EACH TAB PO SCH (21:00)
[2020-07-27] MEDS ORDERED: RIVAROXABAN 10 MG TAB PO SCH (09:00)
== END 2020-07-26 15:30 | disposition home health service (06) ==
LOC: OR 06:02 → 5NMEDONC 14:22 → OR 14:22
PROVIDERS: ATTEND Orthopaedic Surgery
DX: M17.11 Unilateral primary osteoarthritis, right knee (principal); E11.9 Type 2 diabetes mellitus without complications; Z96.652 Presence of left artificial knee joint; Z83.3 Family history of diabetes mellitus; Z20.822 Contact with and (suspected) exposure to COVID-19; J45.909 Unspecified asthma, uncomplicated; H40.9 Unspecified glaucoma; Z79.84 Long term (current) use of oral hypoglycemic drugs; Z79.899 Other long term (current) drug therapy; Z88.2 Allergy status to sulfonamides
CPT/HCPCS: 97110; 97161; 64999; 64448; 76942; 88300; 87635; 73560; 27447; C1776; J2250; J1100; J2765; J0690; J2405; J2001; J3010; J1170 ×2; J2795 ×2; J1885; J0330; J2704

== ENCOUNTER → 2020-12-09 | Outpatient (CLI) | payer MEDICARE ==
[~2020-12-09] MED LIST changes: -ACETAMINOPHEN TAB 500 MG TAB PO PRN; +DENOSUMAB 60 MG/ML 1 ML SYRINGE SQ NR; -DEXAMETHASONE SOD PHOSPHATE 4 MG/ML 1 ML VIAL IV ONE; -LACTATED RINGERS 1,000 ML IV SCH; -MELOXICAM 7.5 MG TAB PO PRN; -MIDAZOLAM 2 MG/2 ML VIAL IV PRN; -ONDANSETRON 4 MG/2 ML VIAL IVP ONE; -ROPIVACAINE/EPI/CLONIDINE/KET 50 ML SYRINGE MISCELLANE PRN; -TRANEXAMIC ACID 1,000 MG in SODIUM CHLORIDE 0.9% 100 ML IVPB PRN
[2020-12-09 10:41] VITALS: BP 166/78; PULSE 79; RESP 16; TEMP 98.8
== END ==
LOC: PROCWHC3 10:29
PROVIDERS: ATTEND Internal Medicine
DX: M81.0 Age-related osteoporosis without current pathological fracture (principal); Z88.2 Allergy status to sulfonamides; Z88.1 Allergy status to other antibiotic agents; Z87.891 Personal history of nicotine dependence
CPT/HCPCS: 96372; J0897

== ENCOUNTER → 2021-06-26 | Outpatient (CLI) | payer MEDICARE ==
--- NOTE | 2021-06-27 11:12 | MM ---
Reason for exam: screening (asymptomatic). Last mammogram was performed 1 year ago. History: Patient is postmenopausal. Benign MG stereo VAD BX LT of the left breast, July 31, 2019. Took estrogen for 1 month. Physical Findings: A clinical breast exam by your physician is recommended on an annual basis and results should be correlated with mammographic findings. MG 3D Screening Mammo W/Cad Bilateral CC and MLO view(s) were taken. Prior study comparison: June 22, 2020, bilateral MG 3d diag mammo w/cad MIGUEL. February 02, 2020, left breast MG 3d diag mammo w/cad LT. The breast tissue is heterogeneously dense. This may lower the sensitivity of mammography. Finding: There are indeterminate grouped/clustered calcifications in the outer quadrant of the right breast. Previous mammotome biopsy in the left breast. ASSESSMENT: Incomplete: need additional imaging evaluation, BI-RAD 0 RECOMMENDATION: Special view mammogram of the right breast. [facility] will attempt to contact patient to return for supplemental views.
== END | disposition home or self-care (01) ==
LOC: RADMAMWWP 08:43
PROVIDERS: ATTEND Surgery
DX: Z12.31 Encounter for screening mammogram for malignant neoplasm of breast (principal); Z78.0 Asymptomatic menopausal state
CPT/HCPCS: 77063; 77067

== ENCOUNTER → 2021-12-11 | Outpatient (CLI) | payer MEDICARE ==
[~2021-12-11] MED LIST changes: -DENOSUMAB 60 MG/ML 1 ML SYRINGE SQ NR; +DENOSUMAB 60 MG/ML 1 ML SYRINGE SQ ONE
== END ==
LOC: PROCWHC3 10:48
PROVIDERS: ATTEND Internal Medicine
DX: M81.0 Age-related osteoporosis without current pathological fracture (principal); Z88.2 Allergy status to sulfonamides; Z87.891 Personal history of nicotine dependence
CPT/HCPCS: 96372; J0897

== ENCOUNTER → 2022-01-31 | Outpatient (CLI) | payer MEDICARE ==
--- NOTE | 2022-01-31 12:30 | XR ---
EXAMINATION TYPE: XR chest 2V DATE OF EXAM: 01/31/2022 COMPARISON: 08/14/10 HISTORY: Shortness of breath TECHNIQUE: Frontal and lateral views of the chest are obtained. FINDINGS: Scattered senescent parenchymal changes noted. No evidence for infiltrate. No evidence for atelectasis. Heart size is stable. Mediastinal structures are stable and grossly unremarkable. No evidence for hilar prominence. Degenerative changes dorsal spine. IMPRESSION: 1. No evidence for acute pulmonary disease.
== END | disposition home or self-care (01) ==
LOC: RADXRMAIN 12:13
PROVIDERS: ATTEND Internal Medicine
DX: R06.02 Shortness of breath (principal)
CPT/HCPCS: 71046

== ENCOUNTER → 2022-07-02 | Outpatient (CLI) | payer MEDICARE | END | disposition home or self-care (01) | LOC: RADBDWWP 08:00 | PROVIDERS: ATTEND Internal Medicine | DX: Z53.9 Procedure and treatment not carried out, unspecified reason (principal) ==

== ENCOUNTER → 2022-07-02 | Outpatient (CLI) | payer MEDICARE ==
--- NOTE | 2022-07-02 10:04 | MM ---
Reason for Exam: Screening (asymptomatic). Last screening mammogram was performed 12 month(s) ago. Patient History: Menarche at age 15. First Full-Term at age 21. Postmenopausal. Estrogen for 1 month. 07/31/2019, Benign Core Biopsy on the left side. Risk Values: Selena 5 year model risk: 1.7%. NCI Lifetime model risk: 4.4%. Prior Study Comparison: 06/22/2020 Bilateral Diagnostic Mammogram, [facility]. 06/26/2021 Bilateral Screening Mammogram, [facility]. 06/29/2021 Right Diagnostic Mammogram, [facility]. Tissue Density: The breast tissue is heterogeneously dense. This may lower the sensitivity of mammography. Findings: Analyzed By CAD. There is no suspicious group of microcalcifications or new suspicious mass in either breast. Overall Assessment: Benign, BI-RAD 2 Management: Screening Mammogram of both breasts in 1 year. A clinical breast exam by your physician is recommended on an annual basis and results should be correlated with mammographic findings. Electronically signed and approved by: Fei Olivera M.D. Radiologis
--- NOTE | 2022-07-02 13:21 | BD ---
EXAMINATION TYPE: Axial Bone Density DATE OF EXAM: 07/02/2022 CLINICAL HISTORY: 72 year old Female. ICD-10 CODE: M81.0 OSTEOPENIA Height: 61.5 Weight: 161.0 FRAX RISK QUESTIONS: Alcohol (3 or more units per day): no Family History (Parent hip fracture): no Glucocorticoids (More than 3mos): no (Ex: prednisone, prednisolone, methylprednisolone, dexamethasone, and hydrocortisone). History of Fracture in Adulthood: no Secondary Osteoporosis: 1. Type 1 Diabetes: no 2. Hyperthyroidism: no 3. Menopause before 45: yes 4. Malnutrition: no 5. Chronic liver disease: no Rheumatoid Arthritis: no Current Tobacco Use: no RISK FACTORS HISTORY OF: Surgery to Spine/Hip(right/left)/Wrist (right/left): no Family History of Osteoporosis: no Active: no Diet low in dairy products/other sources of calcium: no Postmenopausal woman: yes Lost more than 2 inches in height since high school: yes MEDICATIONS: Thyroid Medications: thyroid How Lon year Additional History: EXAM MEASUREMENTS: Bone mineral densitometry was performed using the [employer] System. Bone mineral density as measured about the Lumbar spine is: ----- L1-L4(G/cm2): 1.174 T Score Values are as follows: ----- L1: -0.9 ----- L2: -2.9 ----- L3: 1.5 ----- L4: 1.2 ----- L1-L4: -0.1 Z Score Values are as follows: ----- L1: -0.1 ----- L2: -2.2 ----- L3: 2.3 ----- L4: 2.0 ----- L1-L4: 0.7 Bone mineral density has: increased 7.7 % since study of: 08.10.2016 Bone mineral density about the R hip (g/cm2): 1.054 Bone mineral density about the L hip (g/cm2): 0.989 T Score values are as follows: -----R Neck: 0.4 -----L Neck: -0.1 -----R Total: -0.2 -----L Total: -0.4 Z Score values are as follows: -----R Neck: 0.8 -----L Neck: 0.3 -----R Total: 0.5 -----L Total: 0.3 Bone mineral density has: increased 3.0 % since study of: 08.10.2016 FRAX%s: The graph provided illustrates a 3.4% chance for a major osteoporotic fx and a 0.3% chance fo r the hips probability for fx in 10 years time. IMPRESSION: Normal (Values between +1 and -1 indicate normal bone mass). Consider repeating this study in 5 year s or sooner if there is some new clinical indication. NOTE: T-SCORE=SD OF THE YOUNG ADULT MEAN.
== END | disposition home or self-care (01) ==
LOC: RADMAMWWP 07:11
PROVIDERS: ATTEND Surgery
DX: Z12.31 Encounter for screening mammogram for malignant neoplasm of breast (principal); M81.0 Age-related osteoporosis without current pathological fracture; M85.89 Other specified disorders of bone density and structure, multiple sites; Z78.0 Asymptomatic menopausal state
CPT/HCPCS: 77063; 77067; 77080

== ENCOUNTER → 2022-07-05 | Outpatient (CLI) | payer MEDICARE ==
[2022-07-05 13:05] VITALS: BP 158/78; PULSE 69; RESP 17; TEMP 97.8
--- NOTE | 2022-07-05 13:23 | P.PN ---
Subjective Progress Note Date: 07/05/22 Principal diagnosis: fibrocystic breast disease surveillance of breast Patient is a 72-year-old female who on a routine mammogram performed on was noted to have an area of concern in the left breast. She was seen in consultation for Dr. Leos regarding this. Additional views of the left breast were obtained which revealed a persistent suspicious 4 mm heterogeneous group/cluster calcification in the upper outer quadrant area of the left breast. The patient was recommended to undergo stereotactic core biopsy. This was done on 07-31-19 and was benign /concordant. The patient does not feel any masses lumps or nodules in her breasts. She does not complain of any nipple discharge of concern. She is not reporting any recent trauma or infection in the breast. She had a bilateral mammogram on 07-02-22 which was BIRAD 2. Family History: maternal aunt: colon cancer maternal aunt: throat cancer Hormonal History: menarche; 15 breast fed: no, first born at 21 menopasue: 50 BCP: none hormones: 1 year Surgical History: D&C bilateral knee replacement right eye glaucoma Medical history: diabetic hypothyroid Social History: smoke: none alcohol: none drugs: none - Constitutional Comment: hot flashes Constitutional: Reports sweats - EENT Comment: glaucoma, wears glasses Eyes: denies blurred vision, denies pain Ears: deny: decreased hearing, tinnitus Ears, nose, mouth and throat: Denies headache, Denies sore throat - Breasts Breasts: bilateral: as per HPI - Cardiovascular Cardiovascular: Denies chest pain, Denies shortness of breath - Respiratory Comment: asthma - Gastrointestinal Gastrointestinal: Denies abdominal pain, Denies diarrhea, Denies nausea, Denies vomiting - Genitourinary (Female) Comment: UTI Genitourinary: Denies dysuria, Denies hematuria - Menstruation Menstruation: Reports postmenopausal - Musculoskeletal Comment: arthritis - Neurological Neurological: Denies numbness, Denies weakness - Endocrine Endocrine: Denies fatigue, Denies weight change - Hematologic/Lymphatic Comment: none - Allergic/Immunologic Allergic/Immunologic: Reports seasonal allergies Objective - Vital Signs Vital signs: Vital Signs Temp 97.8 F 07/05/22 13:03 Pulse 69 07/05/22 13:03 Resp 17 07/05/22 13:03 BP 158/78 07/05/22 13:03 Pulse Ox 99 07/05/22 13:03 FiO2 Intake & Output 07/04/22 07/05/22 07/05/22 18:59 06:59 18:59 Weight 72.575 kg - Constitutional General appearance: Present: cooperative - EENT Eyes: Present: EOMI ENT: Present: hearing grossly normal - Neck Neck: Present: normal ROM - Respiratory Respiratory: bilateral: CTA - Cardiovascular Rhythm: regular Heart sounds: normal: S1, S2 - Integumentary Integumentary: Present: normal turgor - Musculoskeletal Musculoskeletal: Present: gait normal - Psychiatric Psychiatric: Present: A&O x's 3, appropriate affect, intact judgment & insight - Additional findings Additional findings: Breast Exam: BRA: 36B inspectioin: bilateral grade 2 ptosis, burn scar left breast palpation: right breast: multi positional exam fibrocystic changes no dominant masses or nodules of concern Right axilla: No adenopathy of concern Left breast: Multi-positional exam fibrocystic changes no dominant masses or nodules of concern Left axilla: No adenopathy of concern Assessment and Plan Assessment: Impression: diabetic hypothyroid Fibrocystic breast changes Plan: Fibrocystic breast changes repeat bilateral mammogram in 1 year with a physician exam at that time Cc: Dr. Campos
== END ==
LOC: WWCWWP 12:37
PROVIDERS: ATTEND Surgery
DX: Z12.31 Encounter for screening mammogram for malignant neoplasm of breast (principal); E03.9 Hypothyroidism, unspecified; E11.9 Type 2 diabetes mellitus without complications; N60.19 Diffuse cystic mastopathy of unspecified breast; Z80.0 Family history of malignant neoplasm of digestive organs; Z96.653 Presence of artificial knee joint, bilateral; N60.12 Diffuse cystic mastopathy of left breast; N60.11 Diffuse cystic mastopathy of right breast; Z79.890 Hormone replacement therapy; Z80.1 Family history of malignant neoplasm of trachea, bronchus and lung; Z88.2 Allergy status to sulfonamides; Z88.8 Allergy status to other drugs, medicaments and biological substances; Z87.891 Personal history of nicotine dependence; Z79.84 Long term (current) use of oral hypoglycemic drugs

== ENCOUNTER → 2023-07-04 | Outpatient (CLI) | payer MEDICARE ==
--- NOTE | 2023-07-05 10:10 | MM ---
Reason for Exam: Screening (asymptomatic). Last screening mammogram was performed 12 month(s) ago. Patient History: Menarche at age 15. First Full-Term at age 21. Postmenopausal. Estrogen for 1 month. 07/31/2019, Benign Core Biopsy on the left side. Risk Values: Selena 5 year model risk: 1.4%. NCI Lifetime model risk: 3.2%. Prior Study Comparison: 06/26/2021 Bilateral Screening Mammogram, [facility]. 06/29/2021 Right Diagnostic Mammogram, [facility]. 07/02/2022 Bilateral MG 3D screening mammo w/cad, [facility]. Tissue Density: There are scattered areas of fibroglandular density. Findings: Analyzed By CAD. There is no suspicious group of microcalcifications or new suspicious mass in either breast. Stable previous biopsy clip marker. Benign calcifications. Overall Assessment: Benign, BI-RAD 2 Management: Screening Mammogram of both breasts in 1 year. . Patient should continue monthly self-breast exams. A clinical breast exam by your physician is recommended on an annual basis. This exam should not preclude additional follow-up of suspicious palpable abnormalities. Note on Selena scores and lifetime risk: 1. A Selena score greater than 3% is considered moderate risk. If this is the case, consider specialist referral to assess eligibility for a risk reducing agent. 2. If overall lifetime risk for the development of breast cancer is 20% or higher, the patient may qualify for future screening with alternating mammogram and breast MRI. Electronically signed and approved by: Obey Mo M.D. Radiologis
== END | disposition home or self-care (01) ==
LOC: RADMAMWWP 11:04
PROVIDERS: ATTEND Surgery
DX: Z12.31 Encounter for screening mammogram for malignant neoplasm of breast (principal); Z78.0 Asymptomatic menopausal state
CPT/HCPCS: 77063; 77067

== ENCOUNTER → 2023-07-11 | Outpatient (CLI) | payer MEDICARE ==
--- NOTE | 2023-07-11 11:41 | P.PN ---
Subjective Progress Note Date: 07/11/23 Principal diagnosis: fibrocystic breast 07/11/23 Principal diagnosis: fibrocystic breast disease surveillance of breast Patient is a 72-year-old female who on a routine mammogram performed on was noted to have an area of concern in the left breast. She was seen in consultation for Dr. Leos regarding this. Additional views of the left breast were obtained which revealed a persistent suspicious 4 mm heterogeneous group/cluster calcification in the upper outer quadrant area of the left breast. The patient was recommended to undergo stereotactic core biopsy. This was done on 07-31-19 and was benign /concordant. The patient does not feel any masses lumps or nodules in her breasts. She does not complain of any nipple discharge of concern. She is not reporting any recent trauma or infection in the breast. She had a bilateral mammogram on 07-04-23 which was BIRAD 2. She is not complaining of any new lumps masses or nodules of concern. Her mammogram was personally reviewed. Family History: maternal aunt: colon cancer maternal aunt: throat cancer Hormonal History: menarche; 15 breast fed: no, first born at 21 menopasue: 50 BCP: none hormones: 1 year Surgical History: D&C bilateral knee replacement right eye glaucoma Medical history: diabetic hypothyroid Social History: smoke: none alcohol: none drugs: none - Constitutional Comment: hot flashes Constitutional: Reports sweats - EENT Comment: glaucoma, wears glasses Eyes: denies blurred vision, denies pain Ears: deny: decreased hearing, tinnitus Ears, nose, mouth and throat: Denies headache, Denies sore throat - Breasts Breasts: bilateral: as per HPI - Cardiovascular Cardiovascular: Denies chest pain, Denies shortness of breath - Respiratory Comment: asthma - Gastrointestinal Gastrointestinal: Denies abdominal pain, Denies diarrhea, Denies nausea, Denies vomiting - Genitourinary (Female) Comment: UTI Genitourinary: Denies dysuria, Denies hematuria - Menstruation Menstruation: Reports postmenopausal - Musculoskeletal Comment: arthritis - Neurological Neurological: Denies numbness, Denies weakness - Endocrine Endocrine: Denies fatigue, Denies weight change - Hematologic/Lymphatic Comment: none - Allergic/Immunologic Allergic/Immunologic: Reports seasonal allergies Objective - Constitutional General appearance: Present: cooperative - EENT Eyes: Present: EOMI ENT: Present: hearing grossly normal - Neck Neck: Present: normal ROM - Respiratory Respiratory: bilateral: CTA - Cardiovascular Rhythm: regular Heart sounds: normal: S1, S2 - Gastrointestinal General gastrointestinal: Present: soft - Integumentary Integumentary: Present: normal turgor - Musculoskeletal Musculoskeletal: Present: gait normal - Psychiatric Psychiatric: Present: A&O x's 3, appropriate affect, intact judgment & insight - Additional findings Additional findings: Breast Exam: BRA: 36B inspectioin: bilateral grade 2 ptosis, burn scar left breast palpation: right breast: multi positional exam fibrocystic changes no dominant masses or nodules of concern Right axilla: No adenopathy of concern Left breast: Multi-positional exam fibrocystic changes no dominant masses or nodules of concern Left axilla: No adenopathy of concern Assessment and Plan Assessment: Impression: diabetic hypothyroid Fibrocystic breast changes Plan: bilateral mammogram on 07-04-23 BIRAD 2; personally reviewed Fibrocystic breast changes repeat bilateral mammogram in 1 year with a physician exam at that time Cc: Dr. Campos
[2023-07-11 12:10] VITALS: BP 191/80; PULSE 81; RESP 17; TEMP 97.4
== END ==
LOC: WWCWWP 10:28
PROVIDERS: ATTEND Surgery
DX: Z12.31 Encounter for screening mammogram for malignant neoplasm of breast (principal); R92.1 Mammographic calcification found on diagnostic imaging of breast; N60.11 Diffuse cystic mastopathy of right breast; N60.12 Diffuse cystic mastopathy of left breast; E11.9 Type 2 diabetes mellitus without complications; E03.9 Hypothyroidism, unspecified; Z88.2 Allergy status to sulfonamides; Z88.1 Allergy status to other antibiotic agents; Z79.84 Long term (current) use of oral hypoglycemic drugs; Z87.891 Personal history of nicotine dependence

== ENCOUNTER → 2024-07-06 | Outpatient (CLI) | payer MEDICARE ==
--- NOTE | 2024-07-06 10:19 | MM ---
Reason for Exam: Screening (asymptomatic). Last screening mammogram was performed 12 month(s) ago. Patient History: Menarche at age 15. First Full-Term at age 21. Postmenopausal. Estrogen for 1 month. 07/31/2019, Benign Core Biopsy on the left side. Risk Values: Selena 5 year model risk: 1.4%. NCI Lifetime model risk: 3.0%. Prior Study Comparison: 06/29/2021 Right Diagnostic Mammogram, [facility]. 07/02/2022 Bilateral MG 3D screening mammo w/cad, [facility]. 07/04/2023 Bilateral MG 3D screening mammo w/cad, [facility]. Tissue Density: The breasts are heterogeneously dense, which may obscure small masses. Findings: Analyzed By CAD. Mammotome biopsy clip in the left breast is redemonstrated. There are some faint tiny benign-appearing round calcifications in the right breast redemonstrated. There is no suspicious new group of microcalcifications or new suspicious mass in either breast. Overall Assessment: Benign, BI-RAD 2 Management: Screening Mammogram of both breasts in 1 year. . Patient should continue monthly self-breast exams. A clinical breast exam by your physician is recommended on an annual basis. This exam should not preclude additional follow-up of suspicious palpable abnormalities. Note on Selena scores and lifetime risk: 1. A Selena score greater than 3% is considered moderate risk. If this is the case, consider specialist referral to assess eligibility for a risk reducing agent. 2. If overall lifetime risk for the development of breast cancer is 20% or higher, the patient may qualify for future screening with alternating mammogram and breast MRI. [facility], , 07/06/2024 10:17 AM. Electronically signed and approved by: Chuy Wong M.D.
== END | disposition home or self-care (01) ==
LOC: RADMAMWWP 09:40
PROVIDERS: ATTEND Surgery
DX: Z12.31 Encounter for screening mammogram for malignant neoplasm of breast (principal); R92.333 Mammographic heterogeneous density, bilateral breasts; R92.1 Mammographic calcification found on diagnostic imaging of breast; Z78.0 Asymptomatic menopausal state
CPT/HCPCS: 77063; 77067

== ENCOUNTER → 2024-07-09 | Outpatient (CLI) | payer MEDICARE ==
[2024-07-09 10:23] VITALS: BP 154/84; PULSE 68; RESP 17; TEMP 98
--- NOTE | 2024-07-09 10:37 | P.PN ---
Subjective Progress Note Date: 07/09/24 Principal diagnosis: fibrocystic breast disease Subjective Progress Note Date: 07/11/23 Principal diagnosis: fibrocystic breast 07/11/23 Principal diagnosis: fibrocystic breast disease surveillance of breast Patient is a 74-year-old female who on a routine mammogram performed on was noted to have an area of concern in the left breast. She was seen in consultation for Dr. Leos regarding this. Additional views of the left breast were obtained which revealed a persistent suspicious 4 mm heterogeneous group/cluster calcification in the upper outer quadrant area of the left breast. The patient was recommended to undergo stereotactic core biopsy. This was done on 07-31-19 and was benign /concordant. The patient does not feel any masses lumps or nodules in her breasts. She does not complain of any nipple discharge of concern. She is not reporting any recent trauma or infection in the breast. She had a bilateral mammogram on 07-06-24 which was BIRAD 2 and personally interpreted She is not complaining of any new lumps masses or nodules of concern. Her mammogram was personally reviewed. She has some decreased mobility of her left shoulder. She is referred to Dr. Lo. Family History: maternal aunt: colon cancer maternal aunt: throat cancer Hormonal History: menarche; 15 breast fed: no, first born at 21 menopasue: 50 BCP: none hormones: 1 year Surgical History: D&C bilateral knee replacement right eye glaucoma Medical history: diabetic hypothyroid decreased mobility of left shoulder Social History: smoke: none alcohol: none drugs: none - Constitutional Comment: hot flashes Constitutional: Reports sweats - EENT Comment: glaucoma, wears glasses Eyes: denies blurred vision, denies pain Ears: deny: decreased hearing, tinnitus Ears, nose, mouth and throat: Denies headache, Denies sore throat - Breasts Breasts: bilateral: as per HPI - Cardiovascular Cardiovascular: Denies chest pain, Denies shortness of breath - Respiratory Comment: asthma - Gastrointestinal Gastrointestinal: Denies abdominal pain, Denies diarrhea, Denies nausea, Denies vomiting - Genitourinary (Female) Comment: UTI Genitourinary: Denies dysuria, Denies hematuria - Menstruation Menstruation: Reports postmenopausal - Musculoskeletal Comment: arthritis - Neurological Neurological: Denies numbness, Denies weakness - Endocrine Endocrine: Denies fatigue, Denies weight change - Hematologic/Lymphatic Comment: none - Allergic/Immunologic Allergic/Immunologic: Reports seasonal allergies Objective - Vital Signs Vital signs: Vital Signs Temp 98.0 F 07/09/24 10:21 Pulse 68 07/09/24 10:21 Resp 17 07/09/24 10:21 BP 154/84 07/09/24 10:21 Pulse Ox 98 07/09/24 10:21 FiO2 Intake & Output 07/08/24 07/09/24 07/09/24 18:59 06:59 18:59 Weight 72.575 kg - Constitutional General appearance: Present: cooperative - EENT Eyes: Present: EOMI ENT: Present: hearing grossly normal - Neck Neck: Present: normal ROM - Respiratory Respiratory: bilateral: CTA - Cardiovascular Rhythm: regular Heart sounds: normal: S1, S2 - Integumentary Integumentary: Present: normal turgor - Musculoskeletal Musculoskeletal: Present: gait normal - Psychiatric Psychiatric: Present: A&O x's 3, appropriate affect, intact judgment & insight - Additional findings Additional findings: Breast Exam: BRA: 36B inspectioin: bilateral grade 2 ptosis, burn scar left breast palpation: right breast: multi positional exam fibrocystic changes no dominant masses or nodules of concern Right axilla: No adenopathy of concern Left breast: Multi-positional exam fibrocystic changes no dominant masses or nodules of concern Left axilla: No adenopathy of concern decreased mobility of left shoulder Assessment and Plan Assessment: Impression: diabetic hypothyroid Fibrocystic breast changes Plan: bilateral mammogram on 07-06-24 BIRAD 2; personally reviewed and interpreted Fibrocystic breast changes repeat bilateral mammogram in 1 year with a physician exam at that time will follow with ortho surgery as per Dr. Campos Cc: Dr. Campos
== END ==
LOC: WWCWWP 10:12
PROVIDERS: ATTEND Surgery
DX: Z12.31 Encounter for screening mammogram for malignant neoplasm of breast (principal); N60.19 Diffuse cystic mastopathy of unspecified breast; E11.9 Type 2 diabetes mellitus without complications; E03.9 Hypothyroidism, unspecified; Z88.2 Allergy status to sulfonamides; Z87.891 Personal history of nicotine dependence

== ENCOUNTER → 2024-09-11 | Outpatient (CLI) | payer MEDICARE ==
--- NOTE | 2024-09-11 13:28 | XR ---
EXAMINATION TYPE: XR shoulder complete LT DATE OF EXAM: 09/11/2024 1:14 PM COMPARISON: None. CLINICAL INDICATION: Female, 74 years old with history of R52 L shoulder pain, pain TECHNIQUE: Three views of the left shoulder are obtained. FINDINGS: There is vague cortical lucency noted adjacent to the scapular coracoid process extending i nferiorly to abut the inferior glenoid. CT is recommended for fracture evaluation. Mild to moderate d egenerative narrowing of the glenohumeral joint space. Mild AC joint arthropathy. Left lung is clear. IMPRESSION: CT recommendation of the left shoulder with attention to the scapula for fracture. [facility], , 09/11/2024 1:25 PM
== END | disposition home or self-care (01) ==
LOC: RADXRMAIN 12:53
PROVIDERS: ATTEND Internal Medicine
DX: M25.512 Pain in left shoulder (principal)